=== PATIENT | female | born 1930 | race Caucasian/White ===

== ENCOUNTER 2017-12-24 13:42 | Inpatient (IN) ==
[2017-12-24] MEDS ORDERED: IOPAMIDOL 100 ML BOTTLE IV ONE (13:43)
--- NOTE | 2017-12-24 14:26 | Emergency Department Note ---
SOB HPI <Mirza Lees - Last Filed: 12/25/17 13:23> - General Source: patient, other Mode of arrival: other Limitations: no limitations <Lenny Washburn - Last Filed: 12/27/17 08:24> - General Chief Complaint: Shortness of Breath/Dyspnea Stated Complaint: low O2 sats, 84% on room air. Time Seen by Provider: 12/24/17 13:53 - History of Present Illness Patient was scheduled to have a colonoscopy today as a routine colonoscopy. All checking in for preop patient's sats were noted to be low in the low 80s. Patient herself does not describe any shortness of breath there is been no orthopnea and no dyspnea on exertions s he denies any chest pain. She is not a smoker does not have COPD does not have asthma. sHe did have a stent placement by Dr. Lees in [facility] 1 month ago and she has had no complications since then. She states she is able to sleep flat in bed having no orthopnea. Denies any edema no weight gain. EKG is normal at this time he is requiring O2 to keep her O2 sats up at this time.Temperature is 98.2 the pulse is 90 respirations are 20 blood pressure 130/81 pulse ox is 94% (Lenny Washburn) - Related Data Home Medications Medication Instructions Recorded Confirmed Aspirin [Benjy Chewable Aspirin] 81 mg PO DAILY 12/24/17 12/24/17 Cyanocobalamin (Vitamin B-12) 2,500 mcg PO DAILY 12/24/17 12/24/17 [Vitamin B12] Gabapentin [Neurontin] 200 mg PO HS 12/24/17 12/24/17 Losartan [Cozaar] 50 mg PO DAILY 12/24/17 12/24/17 Metoprolol Succinate [Kapspargo 50 mg PO DAILY 12/24/17 12/24/17 Sprinkle] Previous Rx's Medication Instructions Recorded Amoxicillin/Potassium Clav 875 mg PO Q12H #10 tab 12/26/17 [Augmentin] Allergies Allergy/AdvReac Type Severity Reaction Status Date / Time No Known Drug Allergies Allergy Verified 12/24/17 13:45 Review of Systems All systems ED: reviewed and negative except as stated. Respiratory: Reports: as per HPI, other (Low O2 sats the patient herself describes no shortness of breath , her sats are running low) <Lenny Washburn - Last Filed: 12/27/17 08:24> Past Medical History - Past Medical History Medical history: Reports: hypertension Surgical history ED: Reports: other (Kidney stent) - Social History smoking status: Never smoker Alcohol use: Reports: None Drug use: Reports: none <Lenny Washburn - Last Filed: 12/27/17 08:24> Physical Exam Limitations: no limitations General appearance: alert Head: atraumatic, normocephalic Eye: Present: normal appearance, PERRL ENT: normal exam, normal oropharynx, mucous membranes moist Neck: Present: normal inspection, full ROM. Absent: trachea midline Chest: Present: normal inspection, symmetric chest wall rise. Absent: tenderness Respiratory: Present: normal lung sounds bilaterally. Absent: respiratory distress, rales/crackles, wheezes Cardiovascular: Present: regular rate, normal rhythm Abdominal: Present: soft. Absent: distention Extremities: Present: normal inspection, full ROM. Absent: tenderness Back: Present: normal inspection, full ROM, tenderness. Absent: CVA tenderness (R), CVA tenderness (L) Neurological: Present: alert, oriented X3, CN II-XII intact, motor sensory deficit Psychiatric: Present: normal affect, normal mood <Lenny Washburn - Last Filed: 12/27/17 08:24> Vital Signs Temperature 98.2 F 12/24/17 13:43 Pulse Rate 90 12/24/17 13:43 Respiratory Rate 20 12/24/17 13:43 Blood Pressure 130/81 12/24/17 13:43 Pulse Oximetry (%) 94 12/24/17 13:43 Temperature 98.2 F 12/26/17 11:16 Pulse Rate 58 L 12/26/17 07:25 Respiratory Rate 18 12/26/17 11:16 Blood Pressure 130/62 12/26/17 11:16 Pulse Oximetry (%) 96 12/26/17 11:16 Shortness of Breath/Dyspnea - Lab Data Result diagrams: 12/25/17 03:55 12/25/17 03:55 <Mirza Lees - Last Filed: 12/25/17 13:23> - Lab Data Result diagrams: 12/26/17 04:15 12/26/17 04:15 <WuLenny Martin - Last Filed: 12/27/17 08:24> - MDM Narrative Medical decision making narrative: pt admited for pneumonia (Lenny Washburn) - Lab Data Lab Results 12/24/17 12/24/17 12/24/17 Range/Units 13:46 13:46 13:46 WBC 6.2 (4.5-11.0) K/mcL RBC 4.64 (4.00-5.20) M/mcL Hgb 13.1 (12.0-15.0) g/dL Hct 39.7 (36.0-48.0) % MCV 85.6 (80.0-100.0) fL MCH 28.1 (26.0-34.0) pg MCHC 32.9 (31.0-36.0) g/dL RDW 14.7 H (11.5-14.5) % Plt Count 244 (140-440) K/mcL MPV 6.5 L (7.4-10.4) fL Total Counted 100 Seg Neutrophils % 74 (38-78) % Band Neutrophils % 2 (0-10) % Lymphocytes % 15 (15-49) % Monocytes % (Manual) 7 (1-12) % Eosinophils % (Manual) 1 (0-7) % Reactive Lymphocytes 1 (0-2) % Platelet Estimate Normal (NORMAL) RBC Morphology Normal (NORMAL) D-Dimer (0.00-0.40) ug/ml VBG Lactic Acid 1.6 (0.5-2.2) mmol/L Sodium 137 (133-145) mmol/L Potassium 3.7 (3.3-5.1) mmol/L Chloride 99 (96-108) mmol/L Carbon Dioxide 23 (22-30) mmol/L Anion Gap 15.0 (8-16) BUN 20 (8-23) mg/dl Creatinine 1.3 H (0.6-1.1) mg/dl GFR Calculation 36 Glucose 115 H (70-105) mg/dL Calcium 9.1 (8.6-10.4) mg/dl Total Bilirubin 0.4 (0.0-1.0) mg/dL AST 18 (0-37) U/l ALT 9 (0-40) U/l Alkaline Phosphatase 68 (39-117) U/L Total Creatine Kinase 151 (24-170) IU/L CK-MB (CK-2) 2.9 (0-2.9) ng/ml Myoglobin 202 H (25-58) ng/ml Troponin T (0-0.03) ng/ml NT-Pro-B Natriuret Pep 459.6 H (0-450) pg/ml Total Protein 7.1 (5.9-8.4) gm/dL Albumin 4.0 (3.2-5.2) gm/dL Globulin 3.1 (2.2-3.7) gm/dL Albumin/Globulin Ratio 1.3 (1.0-2.3) Urine Color Urine Appearance Urine pH (5.0-9.0) Ur Specific [place] (1.000-1.035) Urine Protein (NEG) mg/dL Urine Glucose (UA) (NEG) mg/dL Urine Ketones (NEG) mg/dL Urine Occult Blood (<0.03) mg/dL Urine Nitrate (NEG) Urine Bilirubin (NEG) mg/dL Urine Urobilinogen (NEG) mg/dL Ur Leukocyte Esterase (NEG) /uL Urine RBC (0-1) /hpf Urine WBC (0-4) /hpf Ur Squamous Epith Cells (0-4) /hpf Urine Bacteria (0) /hpf Ur Culture Indicated? Mycoplasma pneumon IgM Ur Strep pneumoniae Ag (NEGATIVE) 12/24/17 12/24/17 12/24/17 Range/Units 13:48 13:54 15:38 WBC (4.5-11.0) K/mcL RBC (4.00-5.20) M/mcL Hgb (12.0-15.0) g/dL Hct (36.0-48.0) % MCV (80.0-100.0) fL MCH (26.0-34.0) pg MCHC (31.0-36.0) g/dL RDW (11.5-14.5) % Plt Count (140-440) K/mcL MPV (7.4-10.4) fL Total Counted Seg Neutrophils % (38-78) % Band Neutrophils % (0-10) % Lymphocytes % (15-49) % Monocytes % (Manual) (1-12) % Eosinophils % (Manual) (0-7) % Reactive Lymphocytes (0-2) % Platelet Estimate (NORMAL) RBC Morphology (NORMAL) D-Dimer 0.73 H (0.00-0.40) ug/ml VBG Lactic Acid (0.5-2.2) mmol/L Sodium (133-145) mmol/L Potassium (3.3-5.1) mmol/L Chloride (96-108) mmol/L Carbon Dioxide (22-30) mmol/L Anion Gap (8-16) BUN (8-23) mg/dl Creatinine (0.6-1.1) mg/dl GFR Calculation Glucose (70-105) mg/dL Calcium (8.6-10.4) mg/dl Total Bilirubin (0.0-1.0) mg/dL AST (0-37) U/l ALT (0-40) U/l Alkaline Phosphatase (39-117) U/L Total Creatine Kinase (24-170) IU/L CK-MB (CK-2) (0-2.9) ng/ml Myoglobin (25-58) ng/ml Troponin T < 0.01 (0-0.03) ng/ml NT-Pro-B Natriuret Pep (0-450) pg/ml Total Protein (5.9-8.4) gm/dL Albumin (3.2-5.2) gm/dL Globulin (2.2-3.7) gm/dL Albumin/Globulin Ratio (1.0-2.3) Urine Color Yellow Urine Appearance Clear Urine pH 7.0 (5.0-9.0) Ur Specific [place] 1.006 (1.000-1.035) Urine Protein Neg (NEG) mg/dL Urine Glucose (UA) Negative (NEG) mg/dL Urine Ketones Neg (NEG) mg/dL Urine Occult Blood 0.03 A (<0.03) mg/dL Urine Nitrate Neg (NEG) Urine Bilirubin Neg (NEG) mg/dL Urine Urobilinogen Neg (NEG) mg/dL Ur Leukocyte Esterase Neg (NEG) /uL Urine RBC < 1 (0-1) /hpf Urine WBC 0 (0-4) /hpf Ur Squamous Epith Cells 1 (0-4) /hpf Urine Bacteria 0 (0) /hpf Ur Culture Indicated? No Mycoplasma pneumon IgM Ur Strep pneumoniae Ag (NEGATIVE) 12/24/17 12/24/17 Range/Units 15:38 18:38 WBC (4.5-11.0) K/mcL RBC (4.00-5.20) M/mcL Hgb (12.0-15.0) g/dL Hct (36.0-48.0) % MCV (80.0-100.0) fL MCH (26.0-34.0) pg MCHC (31.0-36.0) g/dL RDW (11.5-14.5) % Plt Count (140-440) K/mcL MPV (7.4-10.4) fL Total Counted Seg Neutrophils % (38-78) % Band Neutrophils % (0-10) % Lymphocytes % (15-49) % Monocytes % (Manual) (1-12) % Eosinophils % (Manual) (0-7) % Reactive Lymphocytes (0-2) % Platelet Estimate (NORMAL) RBC Morphology (NORMAL) D-Dimer (0.00-0.40) ug/ml VBG Lactic Acid (0.5-2.2) mmol/L Sodium (133-145) mmol/L Potassium (3.3-5.1) mmol/L Chloride (96-108) mmol/L Carbon Dioxide (22-30) mmol/L Anion Gap (8-16) BUN (8-23) mg/dl Creatinine (0.6-1.1) mg/dl GFR Calculation Glucose (70-105) mg/dL Calcium (8.6-10.4) mg/dl Total Bilirubin (0.0-1.0) mg/dL AST (0-37) U/l ALT (0-40) U/l Alkaline Phosphatase (39-117) U/L Total Creatine Kinase (24-170) IU/L CK-MB (CK-2) (0-2.9) ng/ml Myoglobin (25-58) ng/ml Troponin T (0-0.03) ng/ml NT-Pro-B Natriuret Pep (0-450) pg/ml Total Protein (5.9-8.4) gm/dL Albumin (3.2-5.2) gm/dL Globulin (2.2-3.7) gm/dL Albumin/Globulin Ratio (1.0-2.3) Urine Color Urine Appearance Urine pH (5.0-9.0) Ur Specific [place] (1.000-1.035) Urine Protein (NEG) mg/dL Urine Glucose (UA) (NEG) mg/dL Urine Ketones (NEG) mg/dL Urine Occult Blood (<0.03) mg/dL Urine Nitrate (NEG) Urine Bilirubin (NEG) mg/dL Urine Urobilinogen (NEG) mg/dL Ur Leukocyte Esterase (NEG) /uL Urine RBC (0-1) /hpf Urine WBC (0-4) /hpf Ur Squamous Epith Cells (0-4) /hpf Urine Bacteria (0) /hpf Ur Culture Indicated? 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
--- NOTE | 2017-12-24 14:37 | XRay Report ---
CLINICAL INFORMATION: Hypoxia COMPARISON: None. FINDINGS: Moderate cardiomegaly appreciated. Mediastinum and pulmonary vessels are normal. Moderate airspace disease noted in the left base - retrocardiac region. There are no effusions. IMPRESSION: Moderate left basilar airspace disease - retrocardiac region. This could represent atelectasis or infiltrate. A lateral view would be helpful Moderate cardiomegaly, but no evidence CHF Interpreted and Authenticated by: Lowell Root 12/24/17
[2017-12-24] MEDS ORDERED: IPRATROPIUM/ALBUTEROL 3 ML AMPUL.NEB NEB ONE (14:42)
[2017-12-24] MEDS ORDERED: AZITHROMYCIN 500 MG in DEXTROSE 5% IN WATER 250 ML IV ONE (14:44)
[2017-12-24 14:45] LABS: Mean Cell Volume 85.6 fL (80.0-100.0); Mean Corpuscular HGB Conc 32.9 g/dL (31.0-36.0); Mean Corpuscular Hemoglobin 28.1 pg (26.0-34.0); Platelet Count 244 K/mcL (140-440); RBC 4.64 M/mcL (4.00-5.20); Red Cell Distribution Width 14.7 % (11.5-14.5)
[2017-12-24] MEDS ORDERED: cefTRIAXone 1 GM VIAL IV SCH (14:45)
[2017-12-24 15:11] LABS: Band Neutrophils % 2 % (0-10); Eosinophils % (Manual) 1 % (0-7); Lymphocytes % 15 % (15-49); Monocytes % (Manual) 7 % (1-12); Platelet Estimate NORMAL (NORMAL); RBC Morphology NORMAL (NORMAL); Segmented Neutrophils % 74 % (38-78)
[2017-12-24 15:18] LABS: ALT/SGPT 9 U/l (0-40); Albumin/Globulin Ratio 1.3 (1.0-2.3); Alkaline Phosphatase 68 U/L (39-117); Blood Urea Nitrogen 20 mg/dl (8-23); Creatine Kinase 151 IU/L (24-170); Creatine Kinase MB 2.9 ng/ml (0-2.9); Myoglobin 202 ng/ml (25-58); proBNP 459.6 pg/ml (0-450)
[2017-12-24] MEDS ORDERED: LORazepam 2 MG/ML VIAL IV ONE (15:45)
[2017-12-24 16:06] LABS: Appearance,Urine CLEAR; Bacteria,Urine 0 /hpf (0); Bilirubin,Urine NEG (NEG); Color,Urine YELLOW; Glucose,Urine (UA) NEGATIVE (NEG); Leukocyte Esterase,Urine NEG /uL (NEG); Protein,Urine NEG (NEG); Specific Gravity,Urine 1.006 (1.000-1.035); Urine Blood 0.03 mg/dL (<0.03); Urine RBC < 1 /hpf (0-1); Urine Squamous Epithelial Cell 1 /hpf (0-4); Urine WBC 0 /hpf (0-4); Urobilinogen,Urine NEG (NEG)
[2017-12-24] MEDS ORDERED: LACTATED RINGERS 1,000 ML IV ONE (16:38)
[2017-12-24] MEDS ORDERED: VANCOMYCIN PER PHARMACY IV SCH ×2 (17:15→18:49)
--- NOTE | 2017-12-24 17:45 | Internal Med History&Physical ---
Medical - H&P: HPI Patient information: Note initiated : 12/24/17 at 5:41 pm Service Date, if different from initiated Date: [] Patient: Miriam Meredith a 87 y/o F admitted on for Low O2 Sats, 84% On Room Air. Chief Complaint: [] History of present illness: Ms. Meredith is a 87 year old F with multiple medical issues presents to the emergency room for evaluation of hypoxia. The patient reports that she was getting prepped for a colonoscopy. She has not been feeling well for the last couple of days some weakness and fatigue. Yesterday she had some nausea and vomiting. She continued to use the GoLYTELY, had significant bowel movements. This morning she was feeling weak fatigued had some chills. She presented to the GI suit. Over there it was noted that she was hypoxic and was sent to the emergency room. The patient denies any other acute complaints. In the emergency room the patient was afebrile, heart rate 73 respirations 13-16, blood pressure stable saturating 100% on 15 L of oxygen. ABG drawn in the ER shows pH of 7.48 PCO2 34 PO2 48 this was on 8 L of oxygen via nebulizer. Labs show normal WBC count at 6.2, hemoglobin 13.1 platelets 244 UA has trace blood. Chemistry shows potassium of 3.7 sodium 137 creatinine 1.3 BNP slightly elevated at 459 troponin is negative d-dimer slightly elevated at 0.7 lactic acid is 1.6. CT chest was done for PE, according to the ER physician PE is negative but the patient has bibasilar pneumonia. She is admitted to the hospital for acute hypoxic respiratory failure as well as pneumonia. Patient denies any history of smoking does have history of exposure to secondhand smoke no occupational exposure to smoke. - Constitutional Constitutional: Present: chills, weakness. Absent: fever(s) - EENT Eyes: Absent: photophobia, other visual disturbances - Cardiovascular Cardiovascular: Absent: chest pain, palpatations, paroxysmal nocturnal dyspnea, syncope - Respiratory Respiratory: Absent: cough, wheezing - Gastrointestinal Gastrointestinal: Present: diarrhea, nausea, vomiting - Genitourinary Genitourinary: Absent: hematuria, urinary frequency, urinary hesitancy, urinary incontinence - Musculoskeletal Musculoskeletal: Present: back pain. Absent: joint swelling - Integumentary Integumentary: Present: changing lesions. Absent: wounds, jaundice - Neurological Neurological: Present: headache(s), vertigo. Absent: focal weakness, syncope - Psychiatric Psychiatric: Present: anxiety. Absent: panic attacks - Endocrine Endocrine: Absent: polydipsia, polyphagia, polyuria - Hematologic/Lymphatic Hematologic/Lymphatic: Absent: easy bleeding, easy bruising - Allergic/Immunologic Allergic/Immunologic: Absent: uticaria, wheezing, lip swelling Medical - H&P: PMH Medical history: Chronic back pain Osteoarthritis Hypertension Prediabetes Chronic vertigo Chronic headaches Hydronephrosis Chronic kidney disease Surgical history: Multiple foot surgeries Mammoplasty Appendectomy Total abdominal hysterectomy Family history: reviewed and not pertinent Social history: Retired Lives by self No history of smoking or tobacco use no EtOH no recreational substance use Secondhand smoke exposure Medical - H&P: Meds Home Medications Medication Instructions Recorded Confirmed Type Aspirin [Benjy Chewable Aspirin] 81 mg PO DAILY 12/24/17 12/24/17 History Cyanocobalamin (Vitamin B-12) 2,500 mcg PO DAILY 12/24/17 12/24/17 History [Vitamin B12] Gabapentin [Neurontin] 200 mg PO HS 12/24/17 12/24/17 History Losartan [Cozaar] 50 mg PO DAILY 12/24/17 12/24/17 History Metoprolol Succinate [Kapspargo 50 mg PO DAILY 12/24/17 12/24/17 History Sprinkle] Allergies Allergy/AdvReac Type Severity Reaction Status Date / Time No Known Drug Allergies Allergy Verified 12/24/17 13:45 Medical - H&P: Exam - Constitutional Vitals: Temp Pulse Resp BP Pulse Ox 98.2 F 73 15 120/65 100 12/24/17 13:43 12/24/17 17:25 12/24/17 17:25 12/24/17 17:21 12/24/17 17:25 Exam: GENERAL: The patient is a well-developed, well-nourished in no apparent distress. Is alert and oriented x3. VITAL SIGNS: Reviewed and as noted elsewhere. HEENT: Head is normocephalic and atraumatic. Extraocular muscles are intact. Pupils are equal, round, and reactive to light. Nares appeared normal. Mouth appears any without lesions. Mucous membranes are moist. NECK: Normal to inspection, Supple, No lymphadenopathy or thyromegaly. LUNGS: Air entry equal on both sides, no wheezing, mild crackles at both bases. No accessory muscles of respiration HEART: Regular rate and rhythm normal, S1 and S2 heard, no Gallop, S3 or Rub Noted, No Gross murmur heard. ABDOMEN: Soft, nontender, and nondistended. Positive bowel sounds. No hepatosplenomegaly was noted. EXTREMITIES: No cyanosis, clubbing, rash, lesions or edema. NEUROLOGIC: Cranial nerves II through XII are grossly intact. Motor and Sensory System Grossly Intact PSYCHIATRIC: Normal affect, Normal Mood. Appropriate Behavior. SKIN: No ulceration or wounds noted, No jaundice, No rash noted. skin bite lesions in head and upper neck. Medical - H&P: Reslt - Labs CBC & Chem 7: 12/24/17 13:46 12/24/17 13:46 Labs: Short CBC 12/24/17 Range/Units 13:46 WBC 6.2 (4.5-11.0) K/mcL Hgb 13.1 (12.0-15.0) g/dL Hct 39.7 (36.0-48.0) % Plt Count 244 (140-440) K/mcL BMP 12/24/17 13:46 Sodium 137 Potassium 3.7 Chloride 99 Carbon Dioxide 23 BUN 20 Creatinine 1.3 H Glucose 115 H Calcium 9.1 Cardiac Enzymes 12/24/17 12/24/17 Range/Units 13:46 13:54 Total Creatine Kinase 151 (24-170) IU/L CK-MB (CK-2) 2.9 (0-2.9) ng/ml Troponin T < 0.01 (0-0.03) ng/ml Liver Function 12/24/17 Range/Units 13:46 Total Bilirubin 0.4 (0.0-1.0) mg/dL AST 18 (0-37) U/l ALT 9 (0-40) U/l Alkaline Phosphatase 68 (39-117) U/L Albumin 4.0 (3.2-5.2) gm/dL Urine 12/24/17 Range/Units 15:38 Urine Color Yellow Urine Appearance Clear Urine pH 7.0 (5.0-9.0) Ur Specific [place] 1.006 (1.000-1.035) Urine Protein Neg (NEG) mg/dL Urine Glucose (UA) Negative (NEG) mg/dL Medical - H&P: A/P - Narrative A/P Narrative: A/P Acute hypoxic Respiratory Failure-likely from aspiration pneumonitis. Based on my CT scan review I am unable to see a very significant pneumonia to explain this amount of oxygen need. PE is negative, will wait for the official report of the CT scan. Aspiration Pneumonitis-cover with vancomycin Zosyn and azithromycin for now. Send studies for Legionella, mycoplasma and strep pneumonia. Given the severity of hypoxia I am using a much broader spectrum. Will de-escalate if cultures are negative. HTN-blood pressure stable, one low reading noted but the patient has high blood pressure when I saw the patient, resume home blood pressure medications monitor Pre DM-not taking any medications for glucose control at home, at this time I will watch her glucose and start on SSI insulin as needed Chr Vertigo/ Chr Headaches-resume home medications DVT --heparin subcutaneous Diet-regular diet Full code
[2017-12-24] MEDS ORDERED: VANCOMYCIN 1,000 MG in 0.9 % SODIUM CHLORIDE 250 ML IV ONE (18:00)
--- NOTE | 2017-12-24 18:15 | Cat Scan Report ---
CLINICAL INFORMATION: Elevated d-dimer and hypoxia COMPARISON: None. TECHNIQUE: 80 cc of Isovue-300 were injected intravenously. Using SmartPrep to maximize pulmonary artery opacification, 2.5 mm helical slices were obtained from the lung apices through the lung bases. Following reconstruction, 2.5 mm sagittal, coronal, and axial reformations were processed. The exam was reviewed at mediastinal, lung, and bone windows. The exam was performed using radiation dose optimization techniques including, but not limited to, automated exposure control, adjustment of the mA and/or kV according to patient size and use of iterative reconstruction technique. FINDINGS: The pulmonary arteries are normal in contour and caliber and are well opacified - no evidence of embolus. The thoracic aorta is normal in diameter with mild diffuse intimal thickening. There is no adenopathy in the mediastinal, hilar or axillary regions. The heart is moderately enlarged and there is calcification in the aortic valve. There is also scattered atherosclerotic plaque within the coronary arteries. A large hiatal hernia, consisting of the entire stomach, has transgressed through the esophageal hiatus into the middle mediastinum and undergone organoaxial volvulus. The right lobe of the thyroid is diminutive and the left lobe contains a 2.9 cm well-circumscribed nodule - almost certainly a benign adenoma. Pulmonary parenchymal windows moderate subsegmental atelectasis in the left lower lobe due to compression by the adjacent are hiatal hernia. There is also mild interstitial airspace disease in the posterior left lower lobe which could indicate developing infiltrate or fibrosis. There is minor atelectasis and scarring in the posterior right lower and right middle lobes. No effusions. Bones and soft tissues of the chest wall are unremarkable. IMPRESSION: 1. No evidence of pulmonary embolus - pulmonary arteries are unremarkable. 2. Massive hiatal hernia consisting the entire stomach which transgressed into the middle mediastinum and undergone organoaxial volvulus. 3. Moderate compressive atelectasis in the left lower lobe related to the adjacent large hiatal hernia. There is patchy, predominantly interstitial, airspace disease in the left lower lobe which may indicate developing infiltrate or fibrosis. 4. Scattered fibrosis in the right middle lobe and peripheral right lower lobes Interpreted and Authenticated by: Lowell Root 12/24/17
[2017-12-24] MEDS ORDERED: predniSONE 20 MG TABLET PO ONE (18:49)
[2017-12-24] MEDS ORDERED: PIPERACILLIN SODIUM/TAZOBACTAM 3.375 GM in DEXTROSE 5% IN WATER 50 ML IV SCH (18:49)
[2017-12-24] MEDS ORDERED: NALOXONE HCL 0.4 MG/ML VIAL IV PRN (18:49)
[2017-12-24] MEDS ORDERED: IPRATROPIUM/ALBUTEROL 3 ML AMPUL.NEB NEB SCH (19:00)
[2017-12-24] MEDS: PIPERACILLIN SODIUM/TAZOBACTAM 3.375 GM in DEXTROSE 5% IN WATER 50 ML IV SCH (19:40)
[2017-12-24] MEDS: PIPERACILLIN SODIUM/TAZOBACTAM 2.25 GM in DEXTROSE 5% IN WATER 50 ML IV SCH (19:41)
[2017-12-24] MEDS: 0.9 % SODIUM CHLORIDE 10 ML SYRINGE IV SCH ×2 (19:42→20:47)
[2017-12-24] MEDS: HEPARIN 5,000 UNIT/ML VIAL SQ SCH (19:44)
[2017-12-25] MEDS: PIPERACILLIN SODIUM/TAZOBACTAM 3.375 GM in DEXTROSE 5% IN WATER 50 ML IV SCH ×2 (00:27→06:07)
[2017-12-25] MEDS: PIPERACILLIN SODIUM/TAZOBACTAM 2.25 GM in DEXTROSE 5% IN WATER 50 ML IV SCH ×5 (00:28→23:50)
[2017-12-25] MEDS: IPRATROPIUM/ALBUTEROL 3 ML AMPUL.NEB NEB SCH ×4 (00:33→19:26)
[2017-12-25] MEDS ORDERED: IPRATROPIUM/ALBUTEROL 3 ML AMPUL.NEB NEB ONE (00:36)
[2017-12-25] MEDS: 0.9 % SODIUM CHLORIDE 10 ML SYRINGE IV SCH ×6 (06:07→20:45)
[2017-12-25 06:46] LABS: Basophils # (Auto) 0 K/mcL (0.0-0.3); Basophils % (Auto) 0.2 % (0.0-2.0); Eosinophils # (Auto) 0 K/mcL (0.0-0.7); Eosinophils % (Auto) 0 % (0.0-7.0); Granulocytes % (Auto) 83.7 % (38.0-78.0); Lymphocytes # (Auto) 0.7 K/mcL (1.5-4.8); Lymphocytes % (Auto) 15.2 % (15.5-49.0); Mean Cell Volume 84.8 fL (80.0-100.0); Mean Corpuscular HGB Conc 33.2 g/dL (31.0-36.0); Mean Corpuscular Hemoglobin 28.1 pg (26.0-34.0); Monocytes # (Auto) 0 K/mcL (0.1-0.9); Monocytes % (Auto) 0.9 % (1.0-12.0); Platelet Count 216 K/mcL (140-440); RBC 4.22 M/mcL (4.00-5.20); Red Cell Distribution Width 15.3 % (11.5-14.5)
[2017-12-25 07:25] LABS: ALT/SGPT 8 U/l (0-40); Albumin 3.5 gm/dL (3.2-5.2); Albumin/Globulin Ratio 1.3 (1.0-2.3); Alkaline Phosphatase 56 U/L (39-117); Bilirubin,Direct < 0.2 mg/dL (0.0-0.3); Blood Urea Nitrogen 19 mg/dl (8-23); Gamma Glutamyl Transpeptidase 13 U/L (5-36); Uric Acid 5.5 mg/dL (2.5-8.0)
[2017-12-25] MEDS ORDERED: PANTOPRAZOLE 40 MG TABLET PO SCH (07:30)
[2017-12-25] MEDS ORDERED: predniSONE 20 MG TABLET PO SCH (08:00)
[2017-12-25] MEDS: HEPARIN 5,000 UNIT/ML VIAL SQ SCH ×2 (08:55→20:14)
[2017-12-25] MEDS ORDERED: VANCOMYCIN 1,000 MG in 0.9 % SODIUM CHLORIDE 250 ML IV SCH (09:00)
[2017-12-25] MEDS ORDERED: AZITHROMYCIN 250 MG TABLET PO SCH (09:00)
--- NOTE | 2017-12-25 09:41 | Internal Med Progress Note ---
Medical - PN: Subj Patient information: Note initiated : 12/25/17 at 9:40 am Service Date, if different from initiated Date: [] Patient: Miriam Meredith 87 y/o F admitted on 12/24/17 for Low O2 Sats, 84% On Room Air. Chief Complaint: [] Interval history: Ms. Meredith is a 87 year old F with multiple medical issues presents to the emergency room for evaluation of hypoxia. The patient reports that she was getting prepped for a colonoscopy. She has not been feeling well for the last couple of days some weakness and fatigue. Yesterday she had some nausea and vomiting. She continued to use the GoLYTELY, had significant bowel movements. This morning she was feeling weak fatigued had some chills. She presented to the GI suit. Over there it was noted that she was hypoxic and was sent to the emergency room. The patient denies any other acute complaints. In the emergency room the patient was afebrile, heart rate 73 respirations 13-16, blood pressure stable saturating 100% on 15 L of oxygen. ABG drawn in the ER shows pH of 7.48 PCO2 34 PO2 48 this was on 8 L of oxygen via nebulizer. Labs show normal WBC count at 6.2, hemoglobin 13.1 platelets 244 UA has trace blood. Chemistry shows potassium of 3.7 sodium 137 creatinine 1.3 BNP slightly elevated at 459 troponin is negative d-dimer slightly elevated at 0.7 lactic acid is 1.6. CT chest was done for PE, according to the ER physician PE is negative but the patient has bibasilar pneumonia. She is admitted to the hospital for acute hypoxic respiratory failure as well as pneumonia. Patient denies any history of smoking does have history of exposure to secondhand smoke no occupational exposure to smoke. 12/25 Pt seen examined, no acute overnight issues, weaned off oxygen today. Patient etiology of hypoxia is still a bit enigma, she was rapidly weaned off overnight, then needed some oxygen in AM and has been able to be weaned off oxygen later. 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 labs stable. Pertinent ROS: Denies headache, dizziness Denies chest pain, palpitations Denies cough or shortness of breath Denies abdominal pain, nausea or vomiting. - Constitutional Vitals: Vital Signs Temp Pulse Resp BP Pulse Ox 97.8 F 63 18 156/52 99 12/25/17 04:00 12/25/17 07:19 12/25/17 07:19 12/25/17 06:01 12/25/17 07:19 Period Temp Pulse Resp BP Sys/Forbes Pulse Ox Last 24 Hr 96.9 F-98.2 F 46-96 10-25 88-156/45-126 83-100 Intake and Output 12/24/17 12/25/17 12/25/17 21:59 05:59 13:59 Intake Total 1550 / 1550 290 / 290 50 / 50 Output Total 600 / 600 570 / 570 150 / 150 Balance 950 / 950 -280 / -280 -100 / -100 Weight 188 lb 8 oz Intake & Output: Intake & Output 12/24/17 12/25/17 12/25/17 21:59 05:59 13:59 Intake Total 1550 / 1550 290 / 290 50 / 50 Output Total 600 / 600 570 / 570 150 / 150 Balance 950 / 950 -280 / -280 -100 / -100 Weight 188 lb 8 oz Intake: IV 1550 / 1550 50 / 50 50 / 50 Zithromax 500 mg In Dextrose 5% 250 / 250 in Water 250 ml @ 250 mls/hr IV ONCE ONE Rx#:[id number] Lactated Ringers 1,000 ml @ 1000 / 1000 Wide Open IV BOLUS ONE Rx#: [id number] Oral 240 / 240 Output: Urine Catheter Amount 600 / 600 570 / 570 150 / 150 Other: Urine Appearance Clear Clear Clear Uretheral (Ho) Clear Clear Urine Color Bright Yellow Pale Pale Uretheral (Ho) Bright Yellow Pale Urine Odor Uretheral (Ho) Normal Normal Stool Size Moderate Small Stool Color Yellow Yellow Stool Consistency Watery Liquid Loose # Bowel Movements 1 1 Exam: Constitutional; Afebrile, cooperative, alert, not in distress. Respiratory system: Air Entry equal on both sides, No crackles or wheezing, no rhonchi. CVS- Rate rhythm regular, S1,S2 heard, no gallop, no rub. 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 Medical - PN: Obj Da - Labs CBC & Chem 7: 12/25/17 03:55 12/25/17 03:55 Labs: Abnormal Lab Results 12/25/17 12/25/17 12/24/17 03:55 03:55 15:38 Hgb 11.9 L Hct 35.7 L RDW 15.3 H MPV 6.8 L Gran % 83.7 H Lymph % (Auto) 15.2 L [place] % (Auto) 0.9 L Lymph # (Auto) 0.7 L [place] # (Auto) 0 L D-Dimer Creatinine Glucose 182 H Magnesium 2.6 H Myoglobin NT-Pro-B Natriuret Pep Urine Occult Blood 0.03 A 12/24/17 12/24/17 12/24/17 13:48 13:46 13:46 Hgb Hct RDW 14.7 H MPV 6.5 L Gran % Lymph % (Auto) [place] % (Auto) Lymph # (Auto) [place] # (Auto) D-Dimer 0.73 H Creatinine 1.3 H Glucose 115 H Magnesium Myoglobin 202 H NT-Pro-B Natriuret Pep 459.6 H Urine Occult Blood Meds: Medications Albuterol/Ipratropium (Duoneb) 3 ml NEB Q6HRT [facility] Last Admin: 12/25/17 07:19 Dose: Not Given Aspirin (Aspirin) 81 mg PO DAILY [facility] Azithromycin (Zithromax) 250 mg PO DAILY [facility] Stop: 12/28/17 09:01 Last Admin: 12/25/17 08:55 Dose: 250 mg Gabapentin (Neurontin) 200 mg PO HS [facility] Heparin Sodium (Porcine) (Heparin) 5,000 unit SQ Q12 [facility] Last Admin: 12/25/17 08:55 Dose: 5,000 unit Piperacillin Sod/Tazobactam (Sod 2.25 gm/ Dextrose) 50 mls @ 100 mls/hr IV Q6H [facility] Last Admin: 12/25/17 06:08 Dose: Not Given Losartan Potassium (Cozaar) 50 mg PO DAILY [facility] Naloxone HCl (Narcan) 0.1 mg IV Q2MIN PRN PRN Reason: Opiate Reversal Non-Formulary Medication (Cyanocobalamin (Vitamin B-12) [Vitamin B12]) 2,500 mcg PO DAILY [facility] Non-Formulary Medication (Metoprolol Succinate [Kapspargo Sprinkle]) 50 mg PO DAILY [facility] Pantoprazole S[facility]ix) [facility] Last Admin: 12/25/17 06:57 Dose: 40 mg Prednisone (Prednisone) 40 mg PO [facility] Last Admin: 12/25/17 08:55 Dose: 40 mg Sodium Chloride (Saline Flush) 10 ml IV Q8 [facility] Last Admin: 12/25/17 06:40 Dose: 10 ml Medical - PN: A/P - Time Spent With Patient Total time spent is greater than 50% in coordination of care (as documented) at patient's floor/unit and/or counseling patient: - Narrative A/P Narrative: A/P Acute hypoxic Respiratory Failure-etiology? atlectasis and some aspiration pneumonitits, PE is neg, was able to be weaned off rapidly from [place] nc to regular nc. Aspiration Pneumonitis-cover with vancomycin Zosyn and azithromycin for now. Send studies for Legionella, mycoplasma and strep pneumonia. neg cultures so far, d/c vanco, on zosyn and zithromax for now, anticipate d/c on oral augmentin HTN-blood pressure stable, one low reading noted but the patient has high blood pressure when I saw the patient, resume home blood pressure medications monitor Pre DM-not taking any medications for glucose control at home, at this time I will watch her glucose and start on SSI insulin as needed Chr Vertigo/ Chr Headaches-resume home medications DVT --heparin subcutaneous Diet-regular diet Full code Anticipate d/c home in AM if remains stable. Medical - PN: Qual - VTE Deep Vein Thrombosis/Pulmonary Embolism Present on Admission: No
[2017-12-25] MEDS ORDERED: ASPIRIN 81 MG TAB.CHEW CHEWED ONE (11:52)
[2017-12-25] MEDS ORDERED: LOSARTAN 50 MG TABLET PO ONE (11:52)
[2017-12-25] MEDS ORDERED: METOPROLOL SUCCINATE 50 MG TAB.XL.24H PO ONE (11:53)
[2017-12-25] MEDS ORDERED: ASPIRIN 81 MG TAB.CHEW PO ONE (12:00)
[2017-12-25] MEDS ORDERED: NALOXONE HCL 0.4 MG/ML VIAL IV PRN (12:40)
[2017-12-25] MEDS: ACETAMINOPHEN 325 MG TABLET PO PRN ×3 (13:05→19:39)
--- NOTE | 2017-12-25 13:54 | General Surgery Consult Note ---
History of Present Illness Patient information: Note initiated : 12/25/17 at 1:51 pm Service Date, if different from initiated Date: [] Patient: Miriam Meredith 87 y/o F admitted on 12/24/17 for Low O2 Sats,84% On Room Air/Aspiration Pneumonitis. 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 There is some concern that she may have had some dysphasia but on close questioning she can only remember having dysphasia 3 times which was related to poor chewing of her food. She usually eats without difficulty and she states that she loves bread and he said they only. She eats most meats and has no difficulty swallowing. She denies heartburn at any time. She usually sleeps flat and has no difficulty. She has not had any epigastric or chest pain with breathing. She has not had a chest x-ray in the past 9 years in our record. She states that she had a chest x-ray improvement but that was a few weeks ago when she had a ureteral stent placed. The patient was admitted with hypoxemia of uncertain etiology. There is some concern that she may have pneumonitis but her lungs appear relatively clear except for some basilar atelectasis. She has been afebrile and she does not have leukocytosis. She does not have any cough or congestion. The hypoxemia has resolved and she is presently on room air with O2 saturations in the mid to high 90s. Review of Systems - Cardiovascular claudication, pedal edema Past History Past medical history: hypertension Degenerative arthritis Low back pain Past surgical history: Hysterectomy Breast surgery Past social history: Negative tobacco Negative alcohol Negative drug use Medications and Allergies Home Medications Medication Instructions Recorded Confirmed Type Aspirin [Benjy Chewable Aspirin] 81 mg PO DAILY 12/24/17 12/24/17 History Cyanocobalamin (Vitamin B-12) 2,500 mcg PO DAILY 12/24/17 12/24/17 History [Vitamin B12] Gabapentin [Neurontin] 200 mg PO HS 12/24/17 12/24/17 History Losartan [Cozaar] 50 mg PO DAILY 12/24/17 12/24/17 History Metoprolol Succinate [Kapspargo 50 mg PO DAILY 12/24/17 12/24/17 History Sprinkle] Allergies Allergy/AdvReac Type Severity Reaction Status Date / Time No Known Drug Allergies Allergy Verified 12/24/17 13:45 Exam Temp Pulse Resp BP Pulse Ox 98.0 F 78 16 135/60 94 12/25/17 11:28 12/25/17 11:28 12/25/17 11:28 12/25/17 11:28 12/25/17 11:28 - General physical appearance well developed, well nourished, no distress - Eyes PERRL, normal ocular movement - ENT normal pinna, normal nares, normal mucosa, no hearing loss, no congestion - Head Head exam IM: Present: atraumatic, normocephalic - Neck no masses, no bruits, trachea midline, no lymphadenopathy, no venous distension - Cardiovascular Cardiovascular exam IM: Present: normal rate and rhythm, RRR, +S1, +S2. Absent : JVD, tachycardia - Respiratory normal expansion, normal respiratory effort, clear to auscultation - Abdomen Abdomen: Present: soft, non tender, bowel sounds Hernia: Present: none - Genitourinary Present: normal external genitalia - Integumentary Present: no rash, no growths, no abnormal pigmentation - Neurologic Present: normal coordination, normal sensation - Musculoskeletal Present: normal gait, normal posture - Psychiatric Present: oriented to time, oriented to person, oriented to place, speech is normal, memory intact Results - Labs 12/25/17 03:55 12/25/17 03:55 Abnormal lab results 12/24/17 12/24/17 12/24/17 Range/Units 13:46 13:46 13:48 Hgb (12.0-15.0) g/dL Hct (36.0-48.0) % RDW 14.7 H (11.5-14.5) % MPV 6.5 L (7.4-10.4) fL Gran % (38.0-78.0) % Lymph % (Auto) (15.5-49.0) % [place] % (Auto) (1.0-12.0) % Lymph # (Auto) (1.5-4.8) K/mcL [place] # (Auto) (0.1-0.9) K/mcL D-Dimer 0.73 H (0.00-0.40) ug/ml Creatinine 1.3 H (0.6-1.1) mg/dl Glucose 115 H (70-105) mg/dL Magnesium (1.6-2.5) mg/dL Myoglobin 202 H (25-58) ng/ml NT-Pro-B Natriuret Pep 459.6 H (0-450) pg/ml Urine Occult Blood (<0.03) mg/dL 12/24/17 12/25/17 12/25/17 Range/Units 15:38 03:55 03:55 Hgb 11.9 L (12.0-15.0) g/dL Hct 35.7 L (36.0-48.0) % RDW 15.3 H (11.5-14.5) % MPV 6.8 L (7.4-10.4) fL Gran % 83.7 H (38.0-78.0) % Lymph % (Auto) 15.2 L (15.5-49.0) % [place] % (Auto) 0.9 L (1.0-12.0) % Lymph # (Auto) 0.7 L (1.5-4.8) K/mcL [place] # (Auto) 0 L (0.1-0.9) K/mcL D-Dimer (0.00-0.40) ug/ml Creatinine (0.6-1.1) mg/dl Glucose 182 H (70-105) mg/dL Magnesium 2.6 H (1.6-2.5) mg/dL Myoglobin (25-58) ng/ml NT-Pro-B Natriuret Pep (0-450) pg/ml Urine Occult Blood 0.03 A (<0.03) mg/dL Diabetes panel 12/24/17 12/25/17 Range/Units 13:46 03:55 Sodium 137 139 (133-145) mmol/L Potassium 3.7 4.4 (3.3-5.1) mmol/L Chloride 99 103 (96-108) mmol/L Carbon Dioxide 23 23 (22-30) mmol/L BUN 20 19 (8-23) mg/dl Creatinine 1.3 H 1.1 (0.6-1.1) mg/dl Glucose 115 H 182 H (70-105) mg/dL Calcium 9.1 8.6 (8.6-10.4) mg/dl AST 18 17 (0-37) U/l ALT 9 8 (0-40) U/l Alkaline Phosphatase 68 56 (39-117) U/L Total Protein 7.1 6.2 (5.9-8.4) gm/dL Albumin 4.0 3.5 (3.2-5.2) gm/dL Triglycerides 60 (<150) mg/dl Calcium panel 12/24/17 12/25/17 Range/Units 13:46 03:55 Calcium 9.1 8.6 (8.6-10.4) mg/dl Phosphorus 3.5 (2.7-4.5) mg/dL Albumin 4.0 3.5 (3.2-5.2) gm/dL Pituitary panel 12/24/17 12/25/17 Range/Units 13:46 03:55 Sodium 137 139 (133-145) mmol/L Potassium 3.7 4.4 (3.3-5.1) mmol/L Chloride 99 103 (96-108) mmol/L Carbon Dioxide 23 23 (22-30) mmol/L BUN 20 19 (8-23) mg/dl Creatinine 1.3 H 1.1 (0.6-1.1) mg/dl Glucose 115 H 182 H (70-105) mg/dL Calcium 9.1 8.6 (8.6-10.4) mg/dl Adrenal panel 12/24/17 12/25/17 Range/Units 13:46 03:55 Sodium 137 139 (133-145) mmol/L Potassium 3.7 4.4 (3.3-5.1) mmol/L Chloride 99 103 (96-108) mmol/L Carbon Dioxide 23 23 (22-30) mmol/L BUN 20 19 (8-23) mg/dl Creatinine 1.3 H 1.1 (0.6-1.1) mg/dl Glucose 115 H 182 H (70-105) mg/dL Calcium 9.1 8.6 (8.6-10.4) mg/dl Total Bilirubin 0.4 0.3 (0.0-1.0) mg/dL AST 18 17 (0-37) U/l ALT 9 8 (0-40) U/l Alkaline Phosphatase 68 56 (39-117) U/L Total Protein 7.1 6.2 (5.9-8.4) gm/dL Albumin 4.0 3.5 (3.2-5.2) gm/dL All other labs normal. Assessment and Plan (1) Hiatal hernia The findings of hiatal hernia IN this 87-year-old female is not clinically significant at this time. On close questioning and after many targeted questions the patient can only remember having an episode of food getting stuck 3 times in her life. She sleeps flat and denies having any type of heartburn. She does not have any nocturnal reflux. She eats breads and meats without difficulty. Radiographic findings do not contribute to her acute episode of hypoxemia. There is not enough compressive atelectasis to account for the significant hypoxemia that she had. At this time the patient does not have an indication for upper endoscopy. She does have an asymptomatic hiatal hernia however operative therapy in a patient of this age with essentially no symptoms is contraindicated. Patient is advised that if she should develop any symptoms of dysphagia or severe reflux I will gladly perform her upper endoscopy as an outpatient. Status: Acute (2) Hypertension Status: Acute (3) Chronic kidney disease Status: Acute
[2017-12-25] MEDS ORDERED: GABAPENTIN 100 MG CAPSULE PO SCH ×2 (21:00)
[2017-12-26] MEDS: IPRATROPIUM/ALBUTEROL 3 ML AMPUL.NEB NEB SCH ×3 (03:16→13:47)
[2017-12-26] MEDS: ACETAMINOPHEN 325 MG TABLET PO PRN (03:47)
[2017-12-26] MEDS: 0.9 % SODIUM CHLORIDE 10 ML SYRINGE IV SCH ×2 (05:47→14:04)
[2017-12-26] MEDS: PIPERACILLIN SODIUM/TAZOBACTAM 2.25 GM in DEXTROSE 5% IN WATER 50 ML IV SCH ×2 (05:47→13:54)
[2017-12-26 06:50] LABS: Basophils # (Auto) 0 K/mcL (0.0-0.3); Basophils % (Auto) 0.2 % (0.0-2.0); Eosinophils # (Auto) 0 K/mcL (0.0-0.7); Eosinophils % (Auto) 0 % (0.0-7.0); Granulocytes % (Auto) 75.5 % (38.0-78.0); Lymphocytes # (Auto) 1.5 K/mcL (1.5-4.8); Lymphocytes % (Auto) 18.9 % (15.5-49.0); Mean Cell Volume 85.9 fL (80.0-100.0); Mean Corpuscular HGB Conc 32.7 g/dL (31.0-36.0); Mean Corpuscular Hemoglobin 28.1 pg (26.0-34.0); Monocytes # (Auto) 0.4 K/mcL (0.1-0.9); Monocytes % (Auto) 5.4 % (1.0-12.0); Platelet Count 228 K/mcL (140-440); RBC 4.04 M/mcL (4.00-5.20); Red Cell Distribution Width 14.9 % (11.5-14.5)
[2017-12-26] MEDS ORDERED: PANTOPRAZOLE 40 MG TABLET PO SCH (07:30)
[2017-12-26 07:34] LABS: ALT/SGPT 9 U/l (0-40); Albumin 3.6 gm/dL (3.2-5.2); Albumin/Globulin Ratio 1.4 (1.0-2.3); Alkaline Phosphatase 48 U/L (39-117); Bilirubin,Direct < 0.2 mg/dL (0.0-0.3); Blood Urea Nitrogen 20 mg/dl (8-23); Gamma Glutamyl Transpeptidase 12 U/L (5-36); Uric Acid 4.8 mg/dL (2.5-8.0)
[2017-12-26] MEDS ORDERED: predniSONE 20 MG TABLET PO SCH (08:00)
[2017-12-26] MEDS: HEPARIN 5,000 UNIT/ML VIAL SQ SCH (08:59)
[2017-12-26] MEDS ORDERED: AZITHROMYCIN 250 MG TABLET PO SCH (09:00)
[2017-12-26] MEDS ORDERED: ASPIRIN 81 MG TAB.CHEW PO SCH ×2 (09:00)
[2017-12-26] MEDS ORDERED: CYANOCOBALAMIN (VITAMIN B-12) 500 MCG TABLET PO SCH ×2 (09:00)
[2017-12-26] MEDS ORDERED: LOSARTAN 50 MG TABLET PO SCH ×2 (09:00)
[2017-12-26] MEDS ORDERED: METOPROLOL SUCCINATE 50 MG TAB.XL.24H PO SCH ×2 (09:00)
--- NOTE | 2017-12-26 12:03 | XRay Report ---
CLINICAL INFORMATION: Left hip pain COMPARISON: 06/24/2009. FINDINGS: Sacroiliac and hip joints are normal in width and alignment without arthritic change. There is no fracture or osseous abnormality. Soft tissues are unremarkable. Moderate L5-S1 degenerative disc disease IMPRESSION: Pelvis unremarkable. Moderate L5-S1 degenerative disc disease - stable. Interpreted and Authenticated by: Lowell Root 12/26/17
--- NOTE | 2017-12-26 12:56 | Discharge Summary ---
Medical - DS: Prov Patient information: Note initiated : 12/26/17 at 12:52 pm Service Date, if different from initiated Date: [] Patient: Miriam Meredith 87 y/o F admitted on 12/24/17 for Low O2 Sats,84% On Room Air/Aspiration Pneumonitis. Chief Complaint: [] Date of admission: 12/24/17 18:40 Discharge date: 12/26/17 Primary care physician: Yu Lees Admitting clinician: Tim Plata Consults: 12/25/17 13:10 Consult to Physician [CONS] Routine Comment: Consulting Provider: Mirza Lees Reason For Exam: Physician to Consult Discharging clinician: Tim Plata Medical - DS: Meds - Discharge Medications Prescriptions: Amoxicillin/Potassium Clav [Augmentin] 875 mg PO Q12H #10 tab Active and Home Medications: Home Medications Aspirin [Benjy Chewable Aspirin] 81 mg PO DAILY 12/24/17 [History Confirmed Last Taken 12/24/17] Cyanocobalamin (Vitamin B-12) [Vitamin B12] 2,500 mcg PO DAILY 12/24/17 [ History Confirmed 12/24/17 Last Taken 12/22/17] Gabapentin [Neurontin] 200 mg PO HS 12/24/17 [History Confirmed 12/24/17 Last Taken 12/22/17] Losartan [Cozaar] 50 mg PO DAILY 12/24/17 [History Confirmed 12/24/17 Last Taken 12/24/17] Metoprolol Succinate [Kapspargo Sprinkle] 50 mg PO DAILY 12/24/17 [History Confirmed 12/24/17 Last Taken 12/24/17] Medical - DS: Hosp Hospital course: Ms. Meredith is a 87 year old F with multiple medical issues presents to the emergency room for evaluation of hypoxia. The patient reports that she was getting prepped for a colonoscopy. She has not been feeling well for the last couple of days some weakness and fatigue. Yesterday she had some nausea and vomiting. She continued to use the GoLYTELY, had significant bowel movements. This morning she was feeling weak fatigued had some chills. She presented to the GI suit. Over there it was noted that she was hypoxic and was sent to the emergency room. The patient denies any other acute complaints. In the emergency room the patient was afebrile, heart rate 73 respirations 13-16, blood pressure stable saturating 100% on 15 L of oxygen. ABG drawn in the ER shows pH of 7.48 PCO2 34 PO2 48 this was on 8 L of oxygen via nebulizer. Labs show normal WBC count at 6.2, hemoglobin 13.1 platelets 244 UA has trace blood. Chemistry shows potassium of 3.7 sodium 137 creatinine 1.3 BNP slightly elevated at 459 troponin is negative d-dimer slightly elevated at 0.7 lactic acid is 1.6. CT chest was done for PE, according to the ER physician PE is negative but the patient has bibasilar pneumonia. She is admitted to the hospital for acute hypoxic respiratory failure as well as pneumonia. Acute hypoxic resp failure- etiology a bit uncertain, does not have enough pulmonary findings to justify the high o2 needs, she was off oxygen by the next day. Aspiration pneumonia- treated with abx with good resposne, amox-clav for 5 more days after discharge CT chest showed she had gastric volulus, no symptoms, seen by Dr Lees surgery, outpatient follow up if patient develops any symptoms. At the time of discharge pt is hemodynamically stable, tolerating po diet well, ambulating well, back to baseline. Discharge diagnosis: hypoxic respiratory failure, pneumonia - Time Spent with Patient Total time spent providing and/or coordinating discharge services: Greater than 30 minutes Medical - DS: Exam - Constitutional Vitals: Vital Signs Temp Pulse Pulse Resp BP BP BP 12/26/17 11:16 98.2 F 18 130/62 12/26/17 08:00 16 12/26/17 07:25 58 L 16 12/26/17 06:19 98 F 18 163/71 12/26/17 03:32 97.2 F 64 17 147/83 12/26/17 00:53 97.4 F 69 16 141/74 12/26/17 00:00 97.4 F 69 16 141/74 12/25/17 20:23 98 F 88 20 137/75 12/25/17 19:26 80 16 12/25/17 16:45 18 12/25/17 16:01 135/73 12/25/17 15:58 97.8 F 96 H 18 117/49 Pulse Ox 12/26/17 11:16 96 12/26/17 08:00 12/26/17 07:25 12/26/17 06:19 97 12/26/17 03:32 96 12/26/17 00:53 95 12/26/17 00:00 12/25/17 20:23 92 12/25/17 19:26 12/25/17 16:45 94 12/25/17 16:01 12/25/17 15:58 90 Intake and Output 12/25/17 12/26/17 12/26/17 21:59 05:59 13:59 Intake Total 270 / 270 370 / 370 650 / 650 Output Total 250 / 250 900 / 900 400 / 400 Balance -530 / -530 250 / 250 Intake: IV 50 / 50 50 / 50 50 / 50 Zosyn 2.25 gm In Dextrose 5% in 50 / 50 50 / 50 50 / 50 Water 50 ml @ 100 mls/hr IV Q6H [facility] Rx#:[id number] Oral 220 / 220 320 / 320 600 / 600 Output: Void Amount 150 / 150 900 / 900 Urine/Stool Mix 100 / 100 400 / 400 Other: Meal Dinner Breakfast Percent of Meal Consumed 100% 100% Feeding Ability Independent Urine Appearance Clear Clear Clear Urine Color Bright Yellow Bright Yellow Bright Yellow Urine Odor Normal Normal Normal Stool Size Small Stool Color Brown Brown Stool Consistency Liquid Soft Loose # Voids 1 Weight 184 lb Additional comments: Constitutional; Afebrile, cooperative, alert, not in distress. Respiratory system: Air Entry equal on both sides, No crackles or wheezing, no rhonchi. CVS- Rate rhythm regular, S1,S2 heard, no gallop, no rub. 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 Medical - DS: Data Labs on day of discharge: Labs from last 24 hours 12/26/17 12/26/17 12/26/17 08:29 04:15 04:15 WBC 7.7 RBC 4.04 Hgb 11.4 L Hct 34.7 L MCV 85.9 MCH 28.1 MCHC 32.7 RDW 14.9 H Plt Count 228 MPV 7.1 L Gran % 75.5 Lymph % (Auto) 18.9 [place] % (Auto) 5.4 Eos % (Auto) 0 Baso % (Auto) 0.2 Gran # 5.8 Lymph # (Auto) 1.5 [place] # (Auto) 0.4 Eos # (Auto) 0 Baso # (Auto) 0 Sodium 141 Potassium 4.1 Chloride 105 Carbon Dioxide 23 Anion Gap 13.0 BUN 20 Creatinine 1.2 H GFR Calculation 40 Glucose 116 H Uric Acid 4.8 Calcium 8.9 Phosphorus 3.4 Magnesium 2.6 H Total Bilirubin < 0.2 Direct Bilirubin < 0.2 GGT 12 AST 17 ALT 9 Alkaline Phosphatase 48 Lactate Dehydrogenase 197 Total Protein 6.2 Albumin 3.6 Globulin 2.6 Albumin/Globulin Ratio 1.4 Triglycerides 86 Vancomycin Trough 5.4 Mycoplasma pneumon IgM 12/25/17 09:22 WBC RBC Hgb Hct MCV MCH MCHC RDW Plt Count MPV Gran % Lymph % (Auto) [place] % (Auto) Eos % (Auto) Baso % (Auto) Gran # Lymph # (Auto) [place] # (Auto) Eos # (Auto) Baso # (Auto) Sodium Potassium Chloride Carbon Dioxide Anion Gap BUN Creatinine GFR Calculation Glucose Uric Acid Calcium Phosphorus Magnesium Total Bilirubin Direct Bilirubin GGT AST ALT Alkaline Phosphatase Lactate Dehydrogenase Total Protein Albumin Globulin Albumin/Globulin Ratio Triglycerides Vancomycin Trough Mycoplasma pneumon IgM Negative Preliminary micro results at discharge 12/24/17 13:33 Blood Culture - Preliminary Blood 12/24/17 14:10 Blood Culture - Preliminary Blood Medical - DS: A/P - Patient/Caregiver Discharge Instructions Activity: increase activity as tolerated Diet: Regular Diet Additional Instructions: Follow up with PCP in 1 week Take amoxicillin-Clavunate for 5 more days If you develop fever, chest pain, shortness of breath go to the ER for further evaluation. - Follow up Plan Follow up with: Yu Lees ARNP [Primary Care Provider] - Disposition: Home, Self-Care Prognosis: Fair Rehab Potential: Fair I certify that the patient requires SNF services: No Overall status at discharge: patient is progressing back to baseline Medical - DS: Qual - VTE Deep Vein Thrombosis/Pulmonary Embolism Present on Admission: No
[2017-12-31 06:29] LABS: Legionella pneumophilia Ag, Ur NOT DETECTED
== END 2017-12-26 15:00 | disposition home or self-care (01) | DRG 189 ==
LOC: ED 13:42 → ICU 18:40 → MEDSUR 12-25 18:15
PROVIDERS: ADMIT Internal Medicine; ATTEND Internal Medicine
CPT/HCPCS: 73502; 97162; 97166; 99223; 99231; J0456; J0696; J1644; J2060; J2543; J3370; J7050; J7060; J7120; J7620; J7620-GY; Q9967

== ENCOUNTER 2018-01-29 10:28 | Inpatient (IN) ==
[2018-01-29] MEDS ORDERED: IOPAMIDOL 100 ML BOTTLE IV ONE (10:29)
[2018-01-29] MEDS ORDERED: 0.9 % SODIUM CHLORIDE 500 ML IV ONE (10:57)
[2018-01-29] MEDS ORDERED: ACETAMINOPHEN 325 MG TABLET PO ONE (10:57)
--- NOTE | 2018-01-29 11:03 | Emergency Department Note ---
Abdominal Pain HPI - General Chief Complaint: Abdominal Pain Stated Complaint: Abd pain, flank pain Time Seen by Provider: 01/29/18 10:36 Source: patient Mode of arrival: other Limitations: no limitations - History of Present Illness HPI Narrative: The patient is an 87-year-old female with a recent admission for hypoxic respiratory failure, who presents with complaints of abdominal pain since October that seems to be worsening. She reports that it is intermittent pain. She says have a colonoscopy done at the end of November but prior to that her vitals were taken and she was found to be hypoxic. The colonoscopy by Dr. Larios was canceled and she was sent to the ED and then admitted for bibasilar aspiration pneumonitis. She is treated with antibiotics and discharged home with an oral outpatient prescription. The patient states that her abdominal pain is continuing to worsen. She is describing the pain on the right flank and right lower quadrant. States it "feels like a pain shot." Rates the pain as a 9 out of 10. Reports that she has been having intense urgency to go the bathroom but is unable to get much out when she does go. States that her oral intake is decreased as "anything turns me off." Also states that nothing taste good. She is finding that she is dribbling urine. She has a history of a bladder stent but can't give me details about where exactly that is. She states that she is currently on antibiotics but doesn't know which one and is not sure what it is for. She is denying of cough or difficulty breathing. She does live alone. She states she is full code. MD Complaint: abdominal pain, flank pain Onset (ago): month(s) Consistency: intermittent Severity: severe Severity scale (1-10): 9 Quality: sharp Radiation: RUQ, R flank Worsens with: movement Associated symptoms: Denies: nausea, vomiting, diarrhea, fever, chills - Related Data Home Medications Medication Instructions Recorded Confirmed Aspirin [Benjy Chewable Aspirin] 81 mg PO DAILY 12/24/17 01/29/18 Cyanocobalamin (Vitamin B-12) 2,500 mcg PO DAILY 12/24/17 01/29/18 [Vitamin B12] Gabapentin [Neurontin] 200 mg PO HS 12/24/17 01/29/18 Losartan [Cozaar] 50 mg PO DAILY 10/31/18 12/06/18 Metoprolol Succinate [Kapspargo 50 mg PO DAILY 12/24/17 01/29/18 Sprinkle] Previous Rx's Medication Instructions Recorded Amoxicillin/Potassium Clav 875 mg PO Q12H #10 tab 12/26/17 [Augmentin] Allergies Allergy/AdvReac Type Severity Reaction Status Date / Time No Known Drug Allergies Allergy Verified 01/29/18 10:33 Review of Systems All systems ED: reviewed and negative except as stated. Abdominal Pain PMH - Past Medical History Attestation: Yes: The following information was validated with the patient. Medical history: Reports: hypertension Surgical history ED: Reports: appendectomy - Social History Smoking status: Never smoker Alcohol use: Reports: None Drug use: Reports: none Physical Exam Limitations: no limitations General appearance: alert, in no apparent distress, obese Head: atraumatic, normocephalic Eye: Present: normal appearance ENT: normal exam Neck: Present: normal inspection Chest: Present: normal inspection Respiratory: Present: other (poor air movement but no crackles or wheezes appreciated) Cardiovascular: Present: normal rhythm, tachycardia Abdominal: Present: soft, tenderness, normal bowel sounds. Absent: distention, guarding, rebound, rigidity Abdominal tenderness: Present: RUQ, RLQ, epigastrium Neurological: Present: alert, oriented X3 Psychiatric: Present: normal affect, normal mood Skin: Present: warm, dry Course Course Narrative: Patient presenting with a several month history of abdominal symptoms with recent pneumonia. She presents hypoxic with a oxygen saturation of 88% on room air. She is tachycardic at 101 and respiratory rate is 22. She does meet SIRS criteria. We'll repeat chest x-ray to evaluate for pneumonia. She had a recent CT abdomen and pelvis done prior to coming to the ER and I am waiting for that report. We'll start IV fluids as she does appear volume down to me. We'll treat with Tylenol 650 mg by mouth once. Bladder scan showed 170 cc of urine. At this point suspect sepsis from pneumonia, differential also includes cholecystitis or colitis. - Reevaluation(s) Reevaluation #1: Ct showing: Diffuse colitis of the ascending colon. 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 Pulmonary fibrosis in both lung bases Chest xray negative except for large hiatal hernia. IV Cipro 400 mg q 12 and IV metronidazole 500 mg was initiated. Patient is still hypoxic. CT showing pulmonary fibrosis but she is not on home oxygen. Will add d-dimer and rule out pulmonary embolism. Reevaluation #2: D-dimer elevated. CT angiogram ordered and came back negative for pulmonary embolism but positive for pulmonary fibrosis. Patient requires 4 L nasal cannula still. I called the hospitalist who agreed to admit the patient. I consult to GI who plans to follow. After setting the patient up to be admitted , her C. difficile result came back positive. Vital Signs Temperature 97.9 F 01/29/18 10:28 Pulse Rate 101 H 01/29/18 10:28 Respiratory Rate 22 01/29/18 10:28 Blood Pressure 115/70 01/29/18 10:28 Pulse Oximetry (%) 90 01/29/18 10:28 Temperature 98.1 F 01/29/18 15:50 Pulse Rate 98 H 01/29/18 15:50 Respiratory Rate 18 01/29/18 17:30 Blood Pressure 122/61 01/29/18 15:50 Pulse Oximetry (%) 96 01/29/18 17:30 Abdominal Pain - MDM Narrative Medical decision making narrative: This patient meets criteria for sepsis due to C. difficile colitis. She is also hypoxic from unknown cause at this point other than underlying pulmonary fibrosis. She isn't being admitted to the hospital team with GI consultation. - Lab Data Lab results reviewed: Yes I reviewed the patient's lab results. Result diagrams: 01/29/18 11:07 01/29/18 11:07 Lab Results 01/29/18 01/29/18 01/29/18 Range/Units 11:07 11:07 11:07 WBC 11.3 H (4.5-11.0) K/mcL RBC 4.33 (4.00-5.20) M/mcL Hgb 11.8 L (12.0-15.0) g/dL Hct 35.8 L (36.0-48.0) % MCV 82.5 (80.0-100.0) fL MCH 27.2 (26.0-34.0) pg MCHC 33.0 (31.0-36.0) g/dL RDW 14.4 (11.5-14.5) % Plt Count 349 (140-440) K/mcL MPV 6.2 L (7.4-10.4) fL Gran % 86.6 H (38.0-78.0) % Lymph % (Auto) 7.0 L (15.5-49.0) % [place] % (Auto) 4.5 (1.0-12.0) % Eos % (Auto) 1.2 (0.0-7.0) % Baso % (Auto) 0.7 (0.0-2.0) % Gran # 9.8 H (1.8-8.0) K/mcL Lymph # (Auto) 0.8 L (1.5-4.8) K/mcL [place] # (Auto) 0.5 (0.1-0.9) K/mcL Eos # (Auto) 0.1 (0.0-0.7) K/mcL Baso # (Auto) 0.1 (0.0-0.3) K/mcL D-Dimer VBG Lactic Acid 1.1 (0.5-2.0) mmol/L Sodium 132 L (133-145) mmol/L Potassium 4.2 (3.3-5.1) mmol/L Chloride 97 (96-108) mmol/L Carbon Dioxide 21 L (22-30) mmol/L Anion Gap 14.0 (8-16) BUN 14 (8-23) mg/dl Creatinine 1.2 H (0.6-1.1) mg/dl GFR Calculation 40 Glucose 114 H (70-105) mg/dL Calcium 8.5 L (8.6-10.4) mg/dl Total Bilirubin 0.3 (0.0-1.0) mg/dL AST 14 (0-37) U/l ALT 7 (0-40) U/l Alkaline Phosphatase 63 (39-117) U/L C-Reactive Protein 15.9 H (0.0-0.8) mg/dl Total Protein 6.1 (5.9-8.4) gm/dL Albumin 3.1 L (3.2-5.2) gm/dL Globulin 3.0 (2.2-3.7) gm/dL Albumin/Globulin Ratio 1.0 (1.0-2.3) Stool Occult Blood Stool Occult Bld Immuno (NEGATIVE) Stool Occult Blood #2 Stool Occult Blood #3 01/29/18 01/29/18 01/29/18 Range/Units 11:07 11:30 11:30 WBC (4.5-11.0) K/mcL RBC (4.00-5.20) M/mcL Hgb (12.0-15.0) g/dL Hct (36.0-48.0) % MCV (80.0-100.0) fL MCH (26.0-34.0) pg MCHC (31.0-36.0) g/dL RDW (11.5-14.5) % Plt Count (140-440) K/mcL MPV (7.4-10.4) fL Gran % (38.0-78.0) % Lymph % (Auto) (15.5-49.0) % [place] % (Auto) (1.0-12.0) % Eos % (Auto) (0.0-7.0) % Baso % (Auto) (0.0-2.0) % Gran # (1.8-8.0) K/mcL Lymph # (Auto) (1.5-4.8) K/mcL [place] # (Auto) (0.1-0.9) K/mcL Eos # (Auto) (0.0-0.7) K/mcL Baso # (Auto) (0.0-0.3) K/mcL D-Dimer TNP VBG Lactic Acid (0.5-2.0) mmol/L Sodium (133-145) mmol/L Potassium (3.3-5.1) mmol/L Chloride (96-108) mmol/L Carbon Dioxide (22-30) mmol/L Anion Gap (8-16) BUN (8-23) mg/dl Creatinine (0.6-1.1) mg/dl GFR Calculation Glucose (70-105) mg/dL Calcium (8.6-10.4) mg/dl Total Bilirubin (0.0-1.0) mg/dL AST (0-37) U/l ALT (0-40) U/l Alkaline Phosphatase (39-117) U/L C-Reactive Protein (0.0-0.8) mg/dl Total Protein (5.9-8.4) gm/dL Albumin (3.2-5.2) gm/dL Globulin (2.2-3.7) gm/dL Albumin/Globulin Ratio (1.0-2.3) Stool Occult Blood TNP Stool Occult Bld Immuno Negative (NEGATIVE) Stool Occult Blood #2 TNP Stool Occult Blood #3 TNP 01/29/18 Range/Units 12:18 WBC (4.5-11.0) K/mcL RBC (4.00-5.20) M/mcL Hgb (12.0-15.0) g/dL Hct (36.0-48.0) % MCV (80.0-100.0) fL MCH (26.0-34.0) pg MCHC (31.0-36.0) g/dL RDW (11.5-14.5) % Plt Count (140-440) K/mcL MPV (7.4-10.4) fL Gran % (38.0-78.0) % Lymph % (Auto) (15.5-49.0) % [place] % (Auto) (1.0-12.0) % Eos % (Auto) (0.0-7.0) % Baso % (Auto) (0.0-2.0) % Gran # (1.8-8.0) K/mcL Lymph # (Auto) (1.5-4.8) K/mcL [place] # (Auto) (0.1-0.9) K/mcL Eos # (Auto) (0.0-0.7) K/mcL Baso # (Auto) (0.0-0.3) K/mcL D-Dimer 3.99 H VBG Lactic Acid (0.5-2.0) mmol/L Sodium (133-145) mmol/L Potassium (3.3-5.1) mmol/L Chloride (96-108) mmol/L Carbon Dioxide (22-30) mmol/L Anion Gap (8-16) BUN (8-23) mg/dl Creatinine (0.6-1.1) mg/dl GFR Calculation Glucose (70-105) mg/dL Calcium (8.6-10.4) mg/dl Total Bilirubin (0.0-1.0) mg/dL AST (0-37) U/l ALT (0-40) U/l Alkaline Phosphatase (39-117) U/L C-Reactive Protein (0.0-0.8) mg/dl Total Protein (5.9-8.4) gm/dL Albumin (3.2-5.2) gm/dL Globulin (2.2-3.7) gm/dL Albumin/Globulin Ratio (1.0-2.3) Stool Occult Blood Stool Occult Bld Immuno (NEGATIVE) Stool Occult Blood #2 Stool Occult Blood #3 - Radiology Data Radiology results reviewed: Yes I reviewed the patient's radiology results. Disposition Pt seen by LAST REPAIRER/PA only: No Clinical Impression: C. difficile colitis, Hypoxia Disposition: Xfer As Inpt ([facility]) Condition: Fair
[2018-01-29 11:44] LABS: Basophils # (Auto) 0.1 K/mcL (0.0-0.3); Basophils % (Auto) 0.7 % (0.0-2.0); Eosinophils # (Auto) 0.1 K/mcL (0.0-0.7); Eosinophils % (Auto) 1.2 % (0.0-7.0); Granulocytes % (Auto) 86.6 % (38.0-78.0); Lymphocytes # (Auto) 0.8 K/mcL (1.5-4.8); Mean Cell Volume 82.5 fL (80.0-100.0); Mean Corpuscular Hemoglobin 27.2 pg (26.0-34.0); Monocytes # (Auto) 0.5 K/mcL (0.1-0.9); Monocytes % (Auto) 4.5 % (1.0-12.0); Platelet Count 349 K/mcL (140-440); RBC 4.33 M/mcL (4.00-5.20); Red Cell Distribution Width 14.4 % (11.5-14.5)
--- NOTE | 2018-01-29 11:47 | XRay Report ---
HISTORY: Hypoxia FINDINGS: There is a large retrocardiac hiatus hernia. This has increased in size since 01/02/18. There may be a band of discoid atelectasis in the left lung base adjacent to the hernia. The lungs are otherwise clear. The heart is borderline enlarged. No congestive heart failure or pleural effusion are present. The aorta is tortuous. IMPRESSION: Large hiatus hernia and no acute abnormality Interpreted and Authenticated by: Bal Ruiz 01/29/18
[2018-01-29] MEDS ORDERED: CIPROFLOXACIN 400 MG/200 ML BAG IV SCH (12:15)
[2018-01-29] MEDS ORDERED: metroNIDAZOLE 500 MG/100 ML BAG IV SCH (12:15)
[2018-01-29 12:24] LABS: ALT/SGPT 7 U/l (0-40); Albumin 3.1 gm/dL (3.2-5.2); Alkaline Phosphatase 63 U/L (39-117); Blood Urea Nitrogen 14 mg/dl (8-23); C-Reactive Protein 15.9 mg/dl (0.0-0.8)
--- NOTE | 2018-01-29 14:31 | Cat Scan Report ---
CLINICAL INFORMATION: Hypoxia and elevated serum d-dimer level COMPARISON: None TECHNIQUE: Axial images obtained through the chest. 40 cc intravenous contrast administration was administered, and scanning was performed during pulmonary arterial phase. Since the patient had received IV contrast earlier for an abdominal CT, the volume of IV contrast was decreased for the CT angiogram. Sagittally and coronally reformatted images were obtained. MIP reformatted images. The radiation exposure was limited using dose reduction technology. FINDINGS: The central pulmonary arteries are normal with no intraluminal filling defects. Due to suboptimal opacification, the very small caliber third order pulmonary arteries are not well visualized. Patient has pulmonary fibrosis in both lung bases. There is no evidence of pneumonia. A 6 x 9 mm pulmonary nodule is seen in the superior segment left lower lobe. This is unchanged from the recent chest CT done on 12/24/17. There is pleural scarring in the minor fissure which mimics pulmonary nodules on the axial views. Heart is mildly enlarged. There are calcified plaques in the coronary arteries and the aorta. The aorta is normal in caliber. Patient has a large hiatus hernia with organoaxial volvulus. There is diffuse thickening of the wall of the ascending colon and hepatic flexure with stranding of surrounding fat. This is most likely due to colitis. IMPRESSION: No evidence of pulmonary emboli Stable pulmonary fibrosis in both lower lobes Mild cardiomegaly with atherosclerotic coronary artery disease Colitis in the right side of the colon Interpreted and Authenticated by: Bal Ruiz 01/29/18
--- NOTE | 2018-01-29 15:00 | Internal Med History&Physical ---
Medical - H&P: [facility] Patient information: Note initiated : 01/29/18 at 2:57 pm Service Date, if different from initiated Date: [] Patient: Miriam Meredith a 87 y/o F admitted on for Abd Pain, Flank Pain. Chief Complaint: [] Chief complaint: Diarrhea, weakness, abdominal pain History of present illness: Ms. Meredith is a 87 year old F who is fairly independent and was recently hospitalized for pneumonia in end of November. Patient was discharged on oral Augmentin for presumed aspiration pneumonia. Patient shortly thereafter developed episodes of diarrhea. Her symptoms improved for a few days however over the last 5 days she has had significant weakness along with upper abdominal pain 6 out of 10 to 8 out of 10 cramping without any radiation and associated with diarrhea. She also endorses to low- grade fever but denies chest pain productive sputum, cough, headache, myalgia. She endorses to long-standing back pain. Notably she was due for colonoscopy during last hospitalization which was delayed due to episode of pneumonia. She underwent CT scan today this shows a sending colitis along with pulmonary fibrosis bilateral lung base. With worsening symptoms family got concerned and brought her to the ER. Initial workup was significant for leukocytosis at 11, 300 along with hypoxia requiring 4 L oxygen saturating mid 80s. Stool C. difficile returned positive. Patient was started on vancomycin. Hospitalist service was consulted for admission. At the time of evaluation patient is accompanied with her son Collin. She was able to answer most of the questions. She endorses to history as above. Review of systems A 10 point review of system was performed and is negative except one discussed above Medical - H&P: PMH Medical history: Chronic back pain Osteoarthritis Hypertension Prediabetes Chronic vertigo Chronic headaches Hydronephrosis Chronic kidney disease Surgical history: Multiple foot surgeries Mammoplasty Appendectomy Total abdominal hysterectomy Pertinent family history: Nonsignificant Social history: Retired Lives by self 2 sons No history of smoking or tobacco use no EtOH no recreational substance use Functional capacity: independent ambulation Drug use: none Medical - H&P: Meds Home Medications Medication Instructions Recorded Confirmed Type Aspirin [Benjy Chewable Aspirin] 81 mg PO DAILY 12/24/17 01/29/18 History Cyanocobalamin (Vitamin B-12) 2,500 mcg PO DAILY 12/24/17 01/29/18 History [Vitamin B12] Gabapentin [Neurontin] 200 mg PO HS 12/24/17 01/29/18 History Losartan [Cozaar] 50 mg PO DAILY 12/24/17 01/29/18 History Metoprolol Succinate [Kapspargo 50 mg PO DAILY 12/24/17 01/29/18 History Sprinkle] Amoxicillin/Potassium Clav 875 mg PO Q12H #10 tab 12/26/17 01/29/18 Rx [Augmentin] Allergies Allergy/AdvReac Type Severity Reaction Status Date / Time No Known Drug Allergies Allergy Verified 01/29/18 10:33 Medical - H&P: Exam - Constitutional Vitals: Temp Pulse Resp BP Pulse Ox 97.9 F 89 22 127/66 90 01/29/18 10:28 01/29/18 14:25 01/29/18 10:28 01/29/18 14:25 01/29/18 14:25 General appearance: moderate distress Exam: Head normocephalic neck no lymphadenopathy No ear nose discharge Oral cavity dry S1-S2 regular rhythm Diminished breath sounds bases Abdomen tender epigastrium/right flank Right lower extremity lymphedema No cyanosis or clubbing No joint swelling erythema Skin no suspicious lesion Psych alert cooperative Neuro nonfocal Medical - H&P: Reslt - Labs CBC & Chem 7: 01/29/18 11:07 01/29/18 11:07 Labs: Short CBC 01/29/18 Range/Units 11:07 WBC 11.3 H (4.5-11.0) K/mcL Hgb 11.8 L (12.0-15.0) g/dL Hct 35.8 L (36.0-48.0) % Plt Count 349 (140-440) K/mcL BMP 01/29/18 11:07 Sodium 132 L Potassium 4.2 Chloride 97 Carbon Dioxide 21 L BUN 14 Creatinine 1.2 H Glucose 114 H Calcium 8.5 L Liver Function 01/29/18 Range/Units 11:07 Total Bilirubin 0.3 (0.0-1.0) mg/dL AST 14 (0-37) U/l ALT 7 (0-40) U/l Alkaline Phosphatase 63 (39-117) U/L Albumin 3.1 L (3.2-5.2) gm/dL Medical - H&P: A/P (1) Acute colitis Current visit: Yes Status: Acute * Acute colitis secondary to C. difficile - Supportive Mx, Bowel rest, oral vancomycin * Sepsis-secondary to C. difficile. Oral vancomycin * Abd pain- PRN opioids * Hypoxia- secondary to pul fibrosis-we will schedule outpatient PFT /Pulm followup * History of hypertension -will restart metoprolol however hold losartan until volume status improves. * Neuropathy continue gabapentin * Full code * Prophylaxis heparin Plan * Inpatient admit in light of C. difficile colitis * I anticipate a minimum of 2 midnight hospitalization * Sepsis management per guidelines * Exercise oximetry * Pre-existing will condition management home meds
[2018-01-29] MEDS ORDERED: VANCOMYCIN 250 MG CAPSULE PO ONE (15:17)
[2018-01-29] MEDS ORDERED: ACETAMINOPHEN 325 MG TABLET PO PRN (15:56)
[2018-01-29] MEDS ORDERED: MAGNESIUM SULFATE 2 GM/50 ML BAG IV PRN (15:56)
[2018-01-29] MEDS ORDERED: ACETAMINOPHEN 1,000 MG/100 ML BOTTLE IV PRN (15:56)
[2018-01-29] MEDS ORDERED: HYDROmorphone 2 MG/ML VIAL IV PRN (15:56)
[2018-01-29] MEDS ORDERED: ONDANSETRON 4 MG/2 ML VIAL IV PRN (15:56)
[2018-01-29] MEDS ORDERED: POTASSIUM CHLORIDE 20 MEQ PACKET PO PRN (15:56)
[2018-01-29] MEDS: VANCOMYCIN ORAL SOL 1,000 MG/10 ML BOTTLE PO SCH ×2 (18:01→23:25)
[2018-01-29] MEDS: 0.9 % SODIUM CHLORIDE 1,000 ML IV SCH (18:42)
[2018-01-29] MEDS: PEG 3350/NA SULF,BICARB,CL/KCL 4,000 ML ORAL.SOL PO ONE ×2 (18:44→18:56)
[2018-01-29] MEDS ORDERED: traZODone HCL 50 MG TABLET ONE (19:43)
[2018-01-29] MEDS: CYANOCOBALAMIN (VITAMIN B-12) 500 MCG TABLET PO SCH (20:29)
[2018-01-29] MEDS: HEPARIN 5,000 UNIT/ML VIAL SQ SCH (20:29)
[2018-01-29] MEDS: GABAPENTIN 100 MG CAPSULE PO SCH (20:30)
[2018-01-29] MEDS: 0.9 % SODIUM CHLORIDE 10 ML SYRINGE IV SCH (20:30)
[2018-01-29] MEDS: DOCUSATE SODIUM 100 MG CAPSULE PO SCH (20:30)
[2018-01-29] MEDS: SENNOSIDES/DOCUSATE SODIUM 1 TAB TABLET PO SCH (20:30)
[2018-01-30] MEDS: 0.9 % SODIUM CHLORIDE 10 ML SYRINGE IV SCH ×3 (05:03→21:00)
[2018-01-30 05:49] LABS: Mean Cell Volume 85.5 fL (80.0-100.0); Mean Corpuscular HGB Conc 32.8 g/dL (31.0-36.0); Platelet Count 307 K/mcL (140-440); Red Cell Distribution Width 15.1 % (11.5-14.5)
[2018-01-30 06:11] LABS: ALT/SGPT < 5 U/l (0-40); Albumin 2.5 gm/dL (3.2-5.2); Alkaline Phosphatase 56 U/L (39-117); Bilirubin,Direct < 0.2 mg/dL (0.0-0.3); Blood Urea Nitrogen 11 mg/dl (8-23); Gamma Glutamyl Transpeptidase 11 U/L (5-36); Uric Acid 6.9 mg/dL (2.5-8.0)
[2018-01-30 06:59] LABS: Eosinophils % (Manual) 1 % (0-7); Lymphocytes % 9 % (15-49); Monocytes % (Manual) 2 % (1-12); Platelet Estimate NORMAL (NORMAL); RBC Morphology NORMAL (NORMAL); Segmented Neutrophils % 88 % (38-78)
[2018-01-30] MEDS: VANCOMYCIN ORAL SOL 1,000 MG/10 ML BOTTLE PO SCH ×4 (07:58→20:59)
[2018-01-30] MEDS: CYANOCOBALAMIN (VITAMIN B-12) 500 MCG TABLET PO SCH ×2 (07:58→20:59)
[2018-01-30] MEDS: HEPARIN 5,000 UNIT/ML VIAL SQ SCH ×2 (07:58→20:59)
[2018-01-30] MEDS: MULTIVIT,THER IRON,CA,FA & MIN 1 TABLET PO SCH ×2 (07:59→08:16)
[2018-01-30] MEDS: FOLIC ACID 1 MG TABLET PO SCH (07:59)
[2018-01-30] MEDS: METOPROLOL SUCCINATE 50 MG TAB.XL.24H PO SCH (07:59)
[2018-01-30] MEDS: DOCUSATE SODIUM 100 MG CAPSULE PO SCH ×2 (07:59→21:00)
[2018-01-30] MEDS: ASPIRIN 81 MG TAB.CHEW PO SCH (07:59)
[2018-01-30] MEDS: LOSARTAN 50 MG TABLET PO SCH (07:59)
[2018-01-30] MEDS: 0.9 % SODIUM CHLORIDE 1,000 ML IV SCH ×2 (08:07→12:31)
[2018-01-30] MEDS ORDERED: CYANOCOBALAMIN (VITAMIN B-12) 500 MCG TABLET PO SCH (09:00)
[2018-01-30] MEDS ORDERED: PNEUMOCOCCAL 23-VAL P-SAC VAC 0.5 ML VIAL IM ONE (10:00)
--- NOTE | 2018-01-30 15:00 | Internal Med Progress Note ---
Medical - PN: Subj Patient information: Note initiated : 01/30/18 at 2:58 pm Service Date, if different from initiated Date: [] Patient: Miriam Meredith a 87 y/o F admitted on 01/29/18 for Abd Pain, Flank Pain. Chief Complaint: [] Interval history: Ms. Meredith is a 87 year old F who is fairly independent and was recently hospitalized for pneumonia in end of November. Patient was discharged on oral Augmentin for presumed aspiration pneumonia. Patient shortly thereafter developed episodes of diarrhea. Her symptoms improved for a few days however over the last 5 days she has had significant weakness along with upper abdominal pain 6 out of 10 to 8 out of 10 cramping without any radiation and associated with diarrhea. She also endorses to low- grade fever but denies chest pain productive sputum, cough, headache, myalgia. She endorses to long-standing back pain. Notably she was due for colonoscopy during last hospitalization which was delayed due to episode of pneumonia. She underwent CT scan today this shows a sending colitis along with pulmonary fibrosis bilateral lung base. With worsening symptoms family got concerned and brought her to the ER. Initial workup was significant for leukocytosis at 11, 300 along with hypoxia requiring 4 L oxygen saturating mid 80s. Stool C. difficile returned positive. Patient was started on vancomycin. Hospitalist service was consulted for admission. At the time of evaluation patient is accompanied with her son Collin. She was able to answer most of the questions. She endorses to history as above. 01/30-patient currently on oral vancomycin for C. difficile. Persistent stooling. Start Benadryl. White count at 9.8. Continue crystalloids. No concerns per nursing staff. - Constitutional Vitals: Vital Signs Temp Pulse Resp BP Pulse Ox 97.8 F 79 16 118/62 97 01/30/18 12:00 01/30/18 12:00 01/30/18 12:00 01/30/18 12:00 01/30/18 12:00 Period Temp Pulse Resp BP Sys/Forbes Pulse Ox Last 24 Hr 97.8 F-99.2 F 77-100 16-22 111-132/57-70 86-97 Intake and Output 01/30/18 01/30/18 01/30/18 05:59 13:59 21:59 Intake Total 120 / 120 671 / 671 Balance 120 / 120 671 / 671 Weight 179 lb 11.2 oz Patient Weight 01/31/18 05:59 Weight 179 lb 11.2 oz Intake & Output: Intake & Output 01/30/18 01/30/18 01/30/18 05:59 13:59 21:59 Intake Total 120 / 120 671 / 671 Balance 120 / 120 671 / 671 Weight 179 lb 11.2 oz Intake: IV 671 / 671 Sodium Chloride 0.9% 1,000 ml @ 671 / 671 50 mls/hr IV .Q20H [facility] Rx#: [id number] Oral 120 / 120 Other: Stool Size Moderate Stool Color Brown White Stool Consistency Watery # Bowel Movements 2 # Emeses 3 General appearance: no acute distress Exam: Alert and oriented Nonlabored breathing Nondistended abdomen No anxiety Medical - PN: Obj Da - Labs CBC & Chem 7: 01/30/18 04:17 01/30/18 04:17 Labs: Abnormal Lab Results 01/30/18 01/30/18 01/29/18 04:17 04:17 16:15 WBC RBC 3.70 L Hgb 10.4 L Hct 31.6 L RDW 15.1 H MPV 6.4 L Gran % Lymph % (Auto) Gran # Lymph # (Auto) Seg Neutrophils % 88 H Lymphocytes % 9 L ESR 54 H D-Dimer Sodium Carbon Dioxide 20 L Creatinine Glucose Calcium 7.9 L C-Reactive Protein Total Protein 5.1 L Albumin 2.5 L 01/29/18 01/29/18 01/29/18 12:18 11:07 11:07 WBC 11.3 H RBC Hgb 11.8 L Hct 35.8 L RDW MPV 6.2 L Gran % 86.6 H Lymph % (Auto) 7.0 L Gran # 9.8 H Lymph # (Auto) 0.8 L Seg Neutrophils % Lymphocytes % ESR D-Dimer 3.99 H Sodium 132 L Carbon Dioxide 21 L Creatinine 1.2 H Glucose 114 H Calcium 8.5 L C-Reactive Protein 15.9 H Total Protein Albumin 3.1 L Meds: Medications Acetaminophen (Tylenol) 650 mg PO Q4-6HP PRN PRN Reason: PAIN/FEVER > 101 Aspirin (Aspirin) 81 mg PO DAILY [facility] Last Admin: 01/30/18 07:59 Dose: 81 mg Cyanocobalamin (Vitamin B-12) 1,000 mcg PO BID [facility] Stop: 02/03/18 09:01 Last Admin: 01/30/18 07:58 Dose: 1,000 mcg Docusate Sodium (Colace) 100 mg PO BID [facility] Last Admin: 01/30/18 07:59 Dose: Not Given Folic Acid (Folic Acid) 1 mg PO DAILY [facility] Last Admin: 01/30/18 07:59 Dose: 1 mg Gabapentin (Neurontin) 200 mg PO HS [facility] Last Admin: 01/29/18 20:30 Dose: 200 mg Heparin Sodium (Porcine) (Heparin) 5,000 unit SQ Q12 [facility] Last Admin: 01/30/18 07:58 Dose: 5,000 unit Hydromorphone HCl (Dilaudid) 0 mg IV Q4HP PRN PRN Reason: PAIN LEVEL > 6 Magnesium Sulfate (Magnesium Sulfate) 2 gm in 50 mls @ 50 mls/hr IV UD PRN PRN Reason: MG = or < 1.7 Sodium Chloride (Sodium Chloride 0.9%) 1,000 mls @ 50 mls/hr IV .Q20H [facility] Stop: 02/01/18 03:55 Last Admin: 01/30/18 12:31 Dose: Not Given Acetaminophen (Ofirmev) 1,000 mg in 100 mls @ 200 mls/hr IV Q6HP PRN PRN Reason: PAIN/FEVER > 101 Iron Carb/Multivit/Wells/Folic Acid (Multivitamin W/Minerals) 1 tab PO DAILY [facility] Last Admin: 01/30/18 08:16 Dose: Not Given Losartan Potassium (Cozaar) 50 mg PO DAILY [facility] Last Admin: 01/30/18 07:59 Dose: 50 mg Metoprolol Succinate (Toprol Xl) 50 mg PO DAILY [facility] Last Admin: 01/30/18 07:59 Dose: 50 mg Ondansetron HCl (Zofran) 4 mg IV Q4-6HP PRN PRN Reason: Nausea And Vomiting Potassium Chloride (Klor-Con) 40 meq PO DAILYP PRN PRN Reason: K+ < 3.5 Senna/Docusate Sodium (Senna Plus Tablet) 1 tab PO HS [facility] Last Admin: 01/29/18 20:30 Dose: Not Given Sodium Chloride (Saline Flush) 10 ml IV Q8 [facility] Last Admin: 01/30/18 12:31 Dose: Not Given Trazodone HCl (Desyrel) 50 mg PO HS PRN PRN Reason: Insomnia Vancomycin HCl (Vancomycin Oral Sarah Beth) 500 mg PO QID [facility] Last Admin: 01/30/18 12:30 Dose: 2.5 ml Medical - PN: A/P - Time Spent With Patient Total time spent is greater than 50% in coordination of care (as documented) at patient's floor/unit and/or counseling patient: 15 - 24 minutes (1) Acute colitis Status: Acute Assessment and plan: * Acute colitis secondary to C. difficile -continue oral vancomycin. Clinically improving. * Sepsis-secondary to C. difficile. Clinically improving * Abd pain- PRN opioids * Hypoxia-clinically improved. Secondary to pul fibrosis- schedule outpatient PFT /Pulm followup * History of hypertension -continue metoprolol and losartan * Neuropathy continue gabapentin * Full code * Prophylaxis heparin Plan * Continue oral vancomycin * Pre-existing will condition management home meds * Outpatient PFTs on discharge Current Visit: Yes
[2018-01-30] MEDS: traZODone HCL 50 MG TABLET PO PRN (20:59)
[2018-01-30] MEDS: GABAPENTIN 100 MG CAPSULE PO SCH (20:59)
[2018-01-30] MEDS: SENNOSIDES/DOCUSATE SODIUM 1 TAB TABLET PO SCH (21:00)
[2018-01-31] MEDS: 0.9 % SODIUM CHLORIDE 10 ML SYRINGE IV SCH ×3 (04:39→21:25)
[2018-01-31] MEDS: 0.9 % SODIUM CHLORIDE 1,000 ML IV SCH ×2 (04:58→08:57)
[2018-01-31 06:19] LABS: ALT/SGPT < 5 U/l (0-40); Albumin 2.2 gm/dL (3.2-5.2); Albumin/Globulin Ratio 0.8 (1.0-2.3); Alkaline Phosphatase 58 U/L (39-117); Bilirubin,Direct < 0.2 mg/dL (0.0-0.3); Blood Urea Nitrogen 7 mg/dl (8-23); Gamma Glutamyl Transpeptidase 12 U/L (5-36); Mean Cell Volume 85.1 fL (80.0-100.0); Mean Corpuscular HGB Conc 32.7 g/dL (31.0-36.0); Mean Corpuscular Hemoglobin 27.8 pg (26.0-34.0); Platelet Count 326 K/mcL (140-440); RBC 3.67 M/mcL (4.00-5.20); Red Cell Distribution Width 15.1 % (11.5-14.5); Uric Acid 7.2 mg/dL (2.5-8.0)
[2018-01-31 07:55] LABS: Band Neutrophils % 1 % (0-10); Eosinophils % (Manual) 3 % (0-7); Lymphocytes % 19 % (15-49); Monocytes % (Manual) 6 % (1-12); Platelet Estimate NORMAL (NORMAL); RBC Morphology NORMAL (NORMAL); Segmented Neutrophils % 71 % (38-78)
[2018-01-31] MEDS: METOPROLOL SUCCINATE 50 MG TAB.XL.24H PO SCH (08:57)
[2018-01-31] MEDS: ASPIRIN 81 MG TAB.CHEW PO SCH (08:57)
[2018-01-31] MEDS: LOSARTAN 50 MG TABLET PO SCH (08:57)
[2018-01-31] MEDS: CYANOCOBALAMIN (VITAMIN B-12) 500 MCG TABLET PO SCH ×2 (08:57→21:14)
[2018-01-31] MEDS: MULTIVIT,THER IRON,CA,FA & MIN 1 TABLET PO SCH (08:57)
[2018-01-31] MEDS: HEPARIN 5,000 UNIT/ML VIAL SQ SCH ×2 (08:57→21:12)
[2018-01-31] MEDS: FOLIC ACID 1 MG TABLET PO SCH (08:57)
[2018-01-31] MEDS: DOCUSATE SODIUM 100 MG CAPSULE PO SCH ×2 (08:58→21:25)
[2018-01-31] MEDS: VANCOMYCIN ORAL SOL 1,000 MG/10 ML BOTTLE PO SCH ×4 (08:58→21:14)
--- NOTE | 2018-01-31 09:34 | Internal Med Progress Note ---
Medical - PN: Subj Patient information: Note initiated : 01/31/18 at 9:31 am Service Date, if different from initiated Date: [] Patient: Miriam Meredith a 87 y/o F admitted on 01/29/18 for Abd Pain, Flank Pain. Chief Complaint: [] Interval history: Ms. Meredith is a 87 year old F who is fairly independent and was recently hospitalized for pneumonia in end of November. Patient was discharged on oral Augmentin for presumed aspiration pneumonia. Patient shortly thereafter developed episodes of diarrhea. Her symptoms improved for a few days however over the last 5 days she has had significant weakness along with upper abdominal pain 6 out of 10 to 8 out of 10 cramping without any radiation and associated with diarrhea. She also endorses to low- grade fever but denies chest pain productive sputum, cough, headache, myalgia. She endorses to long-standing back pain. Notably she was due for colonoscopy during last hospitalization which was delayed due to episode of pneumonia. She underwent CT scan today this shows a sending colitis along with pulmonary fibrosis bilateral lung base. With worsening symptoms family got concerned and brought her to the ER. Initial workup was significant for leukocytosis at 11, 300 along with hypoxia requiring 4 L oxygen saturating mid 80s. Stool C. difficile returned positive. Patient was started on vancomycin. Hospitalist service was consulted for admission. At the time of evaluation patient is accompanied with her son Collin. She was able to answer most of the questions. She endorses to history as above. 01/30-patient currently on oral vancomycin for C. difficile. Persistent stooling. Start Benadryl. White count at 9.8. Continue crystalloids. No concerns per nursing staff. 01/31-patient doing better. Improved diarrhea. Improved abdominal pain. Tolerating clears. Advance to low residue diet. No bloody stool. No fever. White count downtrending. Appetite improved. Able to ambulate. No lightheadedness dizziness or concerns per nursing staff. - Constitutional Vitals: Vital Signs Temp Pulse Resp BP Pulse Ox 97.8 F 93 H 18 121/63 90 01/31/18 08:00 01/31/18 04:00 01/31/18 08:00 01/31/18 08:00 01/31/18 08:00 Period Temp Pulse Resp BP Sys/Forbes Pulse Ox Last 24 Hr 97 F-98.7 F 79-93 14-20 114-132/60-70 90-97 Intake and Output 01/30/18 01/31/18 01/31/18 21:59 05:59 13:59 Intake Total 180 / 180 1100 / 1100 Balance 180 / 180 1100 / 1100 Weight 181 lb 6.4 oz Intake & Output: Intake & Output 01/30/18 01/31/18 01/31/18 21:59 05:59 13:59 Intake Total 180 / 180 1100 / 1100 Balance 180 / 180 1100 / 1100 Weight 181 lb 6.4 oz Intake: IV 1000 / 1000 Sodium Chloride 0.9% 1,000 ml @ 1000 / 1000 50 mls/hr IV .Q20H FORMERLY [facility], [facility]1983 Rx#: [id number] Oral 180 / 180 100 / 100 Other: Stool Size Small Stool Consistency Loose # Voids 1 1 # Bowel Movements 1 General appearance: cooperative, no acute distress Exam: Alert oriented Nonlabored breathing Nontender nondistended abdomen no lymphedema No anxiety Medical - PN: Obj Da - Labs CBC & Chem 7: 01/31/18 04:00 01/31/18 04:00 Labs: Abnormal Lab Results 01/31/18 01/31/18 01/30/18 04:00 04:00 04:17 WBC RBC 3.67 L Hgb 10.2 L Hct 31.2 L RDW 15.1 H MPV 6.7 L Gran % Lymph % (Auto) Gran # Lymph # (Auto) Seg Neutrophils % Lymphocytes % ESR D-Dimer Sodium Carbon Dioxide 21 L 20 L BUN 7 L Creatinine Glucose Calcium 8.0 L 7.9 L C-Reactive Protein Total Protein 4.9 L 5.1 L Albumin 2.2 L 2.5 L Albumin/Globulin Ratio 0.8 L 01/30/18 01/29/18 01/29/18 04:17 16:15 12:18 WBC RBC 3.70 L Hgb 10.4 L Hct 31.6 L RDW 15.1 H MPV 6.4 L Gran % Lymph % (Auto) Gran # Lymph # (Auto) Seg Neutrophils % 88 H Lymphocytes % 9 L ESR 54 H D-Dimer 3.99 H Sodium Carbon Dioxide BUN Creatinine Glucose Calcium C-Reactive Protein Total Protein Albumin Albumin/Globulin Ratio 01/29/18 01/29/18 11:07 11:07 WBC 11.3 H RBC Hgb 11.8 L Hct 35.8 L RDW MPV 6.2 L Gran % 86.6 H Lymph % (Auto) 7.0 L Gran # 9.8 H Lymph # (Auto) 0.8 L Seg Neutrophils % Lymphocytes % ESR D-Dimer Sodium 132 L Carbon Dioxide 21 L BUN Creatinine 1.2 H Glucose 114 H Calcium 8.5 L C-Reactive Protein 15.9 H Total Protein Albumin 3.1 L Albumin/Globulin Ratio Meds: Medications Acetaminophen (Tylenol) 650 mg PO Q4-6HP PRN PRN Reason: PAIN/FEVER > 101 Aspirin (Aspirin) 81 mg PO DAILY [facility], [facility] Last Admin: 01/31/18 08:57 Dose: 81 mg Cyanocobalamin (Vitamin B-12) 1,000 mcg PO BID [facility] Stop: 02/03/18 09:01 Last Admin: 01/31/18 08:57 Dose: 1,000 mcg Docusate Sodium (Colace) 100 mg PO BID [facility] Last Admin: 01/31/18 08:58 Dose: Not Given Folic Acid (Folic Acid) 1 mg PO DAILY [facility] Last Admin: 01/31/18 08:57 Dose: 1 mg Gabapentin (Neurontin) 200 mg PO HS [facility] Last Admin: 01/30/18 20:59 Dose: 200 mg Heparin Sodium (Porcine) (Heparin) 5,000 unit SQ Q12 [facility], [facility] Last Admin: 01/31/18 08:57 Dose: 5,000 unit Hydromorphone HCl (Dilaudid) 0 mg IV Q4HP PRN PRN Reason: PAIN LEVEL > 6 Magnesium Sulfate (Magnesium Sulfate) 2 gm in 50 mls @ 50 mls/hr IV UD PRN PRN Reason: MG = or < 1.7 Sodium Chloride (Sodium Chloride 0.9%) 1,000 mls @ 50 mls/hr IV .Q20H [facility] Stop: 02/01/18 03:55 Last Admin: 01/31/18 08:57 Dose: Not Given Acetaminophen (Ofirmev) 1,000 mg in 100 mls @ 200 mls/hr IV Q6HP PRN PRN Reason: PAIN/FEVER > 101 Iron Carb/Multivit/Rena Lara/Folic Acid (Multivitamin W/Minerals) 1 tab PO DAILY [facility] Last Admin: 01/31/18 08:57 Dose: 1 tab Losartan Potassium (Cozaar) 50 mg PO DAILY [facility] Last Admin: 01/31/18 08:57 Dose: 50 mg Metoprolol Succinate (Toprol Xl) 50 mg PO DAILY [facility] Last Admin: 01/31/18 08:57 Dose: 50 mg Ondansetron HCl (Zofran) 4 mg IV Q4-6HP PRN PRN Reason: Nausea And Vomiting Potassium Chloride (Klor-Con) 40 meq PO DAILYP PRN PRN Reason: K+ < 3.5 Senna/Docusate Sodium (Senna Plus Tablet) 1 tab PO HS [facility] Last Admin: 01/30/18 21:00 Dose: Not Given Sodium Chloride (Saline Flush) 10 ml IV Q8 [facility] Last Admin: 01/31/18 04:39 Dose: Not Given Trazodone HCl (Desyrel) 50 mg PO HS PRN PRN Reason: Insomnia Last Admin: 01/30/18 20:59 Dose: 50 mg Vancomycin HCl (Vancomycin Oral Sarah Beth) 500 mg PO QID [facility] Last Admin: 01/31/18 08:58 Dose: 5 ml Medical - PN: A/P - Time Spent With Patient Total time spent is greater than 50% in coordination of care (as documented) at patient's floor/unit and/or counseling patient: 15 - 24 minutes (1) Acute colitis Status: Acute Assessment and plan: * Acute colitis secondary to C. difficile -clinically improving on oral vancomycin. Lower vancomycin dose to 250 4 times daily * Sepsis-secondary to C. difficile. Clinically resolved * Abd pain-clinically improved. Continue PRN opioids * Hypoxia-clinically resolved. Now on room air. Underlying pul fibrosis- schedule outpatient PFT /Pulm followup * History of hypertension -continue metoprolol and losartan * Neuropathy continue gabapentin * Full code * Prophylaxis heparin Plan * Continue oral vancomycin 250 4 times daily * Pre-existing will condition management home meds * Aggressive PT OT * Advance diet * Outpatient PFTs on discharge Current Visit: Yes
[2018-01-31] MEDS: GABAPENTIN 100 MG CAPSULE PO SCH (21:13)
[2018-01-31] MEDS: traZODone HCL 50 MG TABLET PO PRN (21:14)
[2018-01-31] MEDS: SENNOSIDES/DOCUSATE SODIUM 1 TAB TABLET PO SCH (21:25)
[2018-02-01 05:22] LABS: Mean Cell Volume 84.9 fL (80.0-100.0); Mean Corpuscular HGB Conc 32.7 g/dL (31.0-36.0); Mean Corpuscular Hemoglobin 27.8 pg (26.0-34.0); Platelet Count 346 K/mcL (140-440); RBC 3.73 M/mcL (4.00-5.20); Red Cell Distribution Width 15.6 % (11.5-14.5)
[2018-02-01 05:54] LABS: ALT/SGPT 6 U/l (0-40); Albumin 2.5 gm/dL (3.2-5.2); Albumin/Globulin Ratio 1.1 (1.0-2.3); Alkaline Phosphatase 50 U/L (39-117); Bilirubin,Direct < 0.2 mg/dL (0.0-0.3); Blood Urea Nitrogen 6 mg/dl (8-23); Gamma Glutamyl Transpeptidase 11 U/L (5-36); Uric Acid 7.2 mg/dL (2.5-8.0)
[2018-02-01] MEDS: 0.9 % SODIUM CHLORIDE 10 ML SYRINGE IV SCH ×2 (06:04→14:02)
[2018-02-01 06:21] LABS: Basophils % (Manual) 1 % (0-2); Eosinophils % (Manual) 7 % (0-7); Lymphocytes % 11 % (15-49); Monocytes % (Manual) 8 % (1-12); Platelet Estimate NORMAL (NORMAL); RBC Morphology NORMAL (NORMAL); Segmented Neutrophils % 73 % (38-78)
[2018-02-01] MEDS: DOCUSATE SODIUM 100 MG CAPSULE PO SCH (08:05)
[2018-02-01] MEDS: MULTIVIT,THER IRON,CA,FA & MIN 1 TABLET PO SCH (09:11)
[2018-02-01] MEDS: HEPARIN 5,000 UNIT/ML VIAL SQ SCH (09:11)
[2018-02-01] MEDS: ASPIRIN 81 MG TAB.CHEW PO SCH (09:11)
[2018-02-01] MEDS: VANCOMYCIN ORAL SOL 1,000 MG/10 ML BOTTLE PO SCH ×2 (09:11→12:48)
[2018-02-01] MEDS: METOPROLOL SUCCINATE 50 MG TAB.XL.24H PO SCH (09:11)
[2018-02-01] MEDS: CYANOCOBALAMIN (VITAMIN B-12) 500 MCG TABLET PO SCH (09:12)
[2018-02-01] MEDS: LOSARTAN 50 MG TABLET PO SCH (09:12)
[2018-02-01] MEDS: FOLIC ACID 1 MG TABLET PO SCH (09:12)
--- NOTE | 2018-02-01 09:49 | Discharge Summary ---
Medical - DS: Prov Patient information: Note initiated : 02/01/18 at 9:45 am Service Date, if different from initiated Date: [] Patient: Miriam Meredith 87 y/o F admitted on 01/29/18 for Abd Pain, Flank Pain. Chief Complaint: [] Date of admission: 01/29/18 15:34 Discharge date: 02/01/18 Primary care physician: Yu Lees Consults: 01/29/18 Consult to Physician [CONS] Stat Comment: Consulting Provider: Mauri Ferrer Reason For Exam: Physician to Consult 01/29/18 14:51 Consult to Physician [CONS] Stat Comment: Consulting Provider: Jcarlos Whittaker Reason For Exam: Physician to Consult Discharging clinician: Tim Plata Medical - DS: Meds - Discharge Medications Prescriptions: Vancomycin [Vancocin] 250 mg PO QID #48 cap Active and Home Medications: Home Medications Aspirin [Benjy Chewable Aspirin] 81 mg PO DAILY 12/24/17 [History Confirmed 08/11 Last Taken 12/24/17] Cyanocobalamin (Vitamin B-12) [Vitamin B12] 2,500 mcg PO DAILY 12/24/17 [ History Confirmed 01/29/18 Last Taken 12/22/17] Gabapentin [Neurontin] 200 mg PO HS 12/24/17 [History Confirmed 01/29/18 Last Taken 12/22/17] Losartan [Cozaar] 50 mg PO DAILY 12/24/17 [History Confirmed 01/29/18 Last Taken 12/24/17] Metoprolol Succinate [Kapspargo Sprinkle] 50 mg PO DAILY 12/24/17 [History Confirmed 01/29/18 Last Taken 12/24/17] Amoxicillin/Potassium Clav [Augmentin] 875 mg PO Q12H #10 tab 12/26/17 [Rx Confirmed 01/29/18 Last Taken Unknown] Medical - DS: Hosp Hospital course: Ms. Meredith is a 87 year old F who is fairly independent and was recently hospitalized for pneumonia in end of November. Patient was discharged on oral Augmentin for presumed aspiration pneumonia. Patient shortly thereafter developed episodes of diarrhea. Her symptoms improved for a few days however over the last 5 days she has had significant weakness along with upper abdominal pain 6 out of 10 to 8 out of 10 cramping without any radiation and associated with diarrhea. She also endorses to low-grade fever but denies chest pain productive sputum, cough, headache, myalgia. She endorses to long- standing back pain. Notably she was due for colonoscopy during last hospitalization which was delayed due to episode of pneumonia. She underwent CT scan today this shows a sending colitis along with pulmonary fibrosis bilateral lung base. With worsening symptoms family got concerned and brought her to the ER. Initial workup was significant for leukocytosis at 11, 300 along with hypoxia requiring 4 L oxygen saturating mid 80s. Stool C. difficile returned positive. Patient was started on vancomycin. Hospitalist service was consulted for admission. At the time of evaluation patient is accompanied with her son Collin. She was able to answer most of the questions. She endorses to history as above. 01/30-patient currently on oral vancomycin for C. difficile. Persistent stooling. Start Benadryl. White count at 9.8. Continue crystalloids. No concerns per nursing staff. 01/31-patient doing better. Improved diarrhea. Improved abdominal pain. Tolerating clears. Advance to low residue diet. No bloody stool. No fever. White count downtrending. Appetite improved. Able to ambulate. No lightheadedness dizziness or concerns per nursing staff. 02/01 Pt seen examined, soft BM ovenight, no diarrhea, labs stable, no acute complaints or concerns, feels is back to baseline. Educated on need to watch for further use of antibiotics. Probiotics with abx in future. Pt wanting to go home, will be discharged with oral Vancomycin 250mg po x 12 more days to complete a 2 week course At the time of discharge patient is hemodynamically stable, tolerating po diet well, and is nearly back to baseline. Discharge diagnosis: Cdiff colitis - Time Spent with Patient Total time spent providing and/or coordinating discharge services: Less than 30 minutes Medical - DS: Exam - Constitutional Vitals: Vital Signs Temp Pulse Resp BP Pulse Ox 02/01/18 07:08 96.9 F L 72 18 128/62 96 02/01/18 04:00 97.1 F 66 16 140/60 92 01/31/18 23:57 98.1 F 72 18 146/82 93 01/31/18 20:00 97.8 F 84 16 136/70 92 01/31/18 16:00 98 F 18 112/60 92 01/31/18 11:27 97.3 F 14 136/61 95 Intake and Output 01/31/18 02/01/18 02/01/18 21:59 05:59 13:59 Intake Total 980 / 980 Balance 980 / 980 Intake: Oral 980 / 980 Other: Meal Dinner Percent of Meal Consumed 75% Feeding Ability Independent Urine Color Pale Urine Odor Normal Stool Size Moderate Moderate Stool Color Brown Yellow Stool Consistency Soft Loose Loose # Voids 1 # Bowel Movements 1 1 Weight 182 lb Additional comments: Constitutional; Afebrile, cooperative, alert, not in distress. Respiratory system: Air Entry equal on both sides, No crackles or wheezing, no rhonchi. CVS- Rate rhythm regular, S1,S2 heard, no gallop, no rub. Abdomen- Soft nontender abdomen, no organomegaly, no tenderness, no guarding or rigidity, WILLOW ANALYST- AOOx3, moving all extremities, no gross focal deficit noted. Medical - DS: Data Labs on day of discharge: Labs from last 24 hours 02/01/18 02/01/18 04:05 04:05 WBC 6.9 RBC 3.73 L Hgb 10.4 L Hct 31.6 L MCV 84.9 MCH 27.8 MCHC 32.7 RDW 15.6 H Plt Count 346 MPV 6.4 L Total Counted 100 Seg Neutrophils % 73 Band Neutrophils % Not Reportable Lymphocytes % 11 L Monocytes % (Manual) 8 Eosinophils % (Manual) 7 Basophils % (Manual) 1 Nucleated RBCs 1 H Platelet Estimate Normal RBC Morphology Normal Sodium 141 Potassium 4.3 Chloride 111 H Carbon Dioxide 20 L Anion Gap 10.0 BUN 6 L Creatinine 1.1 GFR Calculation 44 Glucose 96 Uric Acid 7.2 Calcium 7.9 L Phosphorus 2.9 Magnesium 2.0 Total Bilirubin < 0.2 Direct Bilirubin < 0.2 GGT 11 AST 14 ALT 6 Alkaline Phosphatase 50 Lactate Dehydrogenase 176 Total Protein 4.8 L Albumin 2.5 L Globulin 2.3 Albumin/Globulin Ratio 1.1 Triglycerides 101 Preliminary micro results at discharge 01/29/18 12:05 Blood Culture - Preliminary Blood 01/29/18 11:15 Blood Culture - Preliminary Blood 01/29/18 11:30 Stool Culture - Preliminary Stool Medical - DS: A/P - Patient/Caregiver Discharge Instructions Activity: increase activity as tolerated Diet: Regular Diet Additional Instructions: Take po vancomycin 250mg four times a day for another 12 days. Follow up with PCP in 1-2 weeks If you develop worsening diarrhea, fever, chills or any other acute concerns, please go back to the ER . - Follow up Plan Follow up with: Yu Lees ARNP [Primary Care Provider] - Disposition: Home, Self-Care Prognosis: Fair Rehab Potential: Fair I certify that the patient requires SNF services: No Overall status at discharge: patient is progressing back to baseline
[2018-02-01] MEDS ORDERED: PNEUMOCOCCAL 23-VAL P-SAC VAC 0.5 ML VIAL IM ONE (11:00)
== END 2018-02-01 14:07 | disposition home or self-care (01) | DRG 872 ==
LOC: ED 10:28 → MEDSUR 15:34
PROVIDERS: ADMIT Internal Medicine; ATTEND Internal Medicine
CPT/HCPCS: 84145; 87324; 87449; 97161; 99238; 90732; J0744; J1644; J7030; J7040; Q9967